=== PATIENT | male | born 1945 | race Caucasian/White ===

== ENCOUNTER 2019-06-21 09:23 | Observation (INO) | payer OTHER, MEDICARE ==
[2019-06-21] MEDS ORDERED: Sodium Chloride 0.9% 10 ML Syringe FLUSH PRN (10:42)
[2019-06-21] MEDS ORDERED: Sodium Chloride 0.9% 1,000 ML IV SCH (10:45)
--- NOTE | 2019-06-21 11:02 | EDM.PDOC ---
ED HPI GENERAL MEDICAL PROBLEM - General Stated Complaint: PASSED OUT, CHEMO, LOW BLOOD COUNTS Time Seen by Provider: 06/21/19 09:43 - History of Present Illness INITIAL COMMENTS - FREE TEXT/NARRATIVE: Rodolfo presents today to the clinic after [place] 2 [place]. He denies any significant exertion at the time, but did have an element of orthostasis. He does feel that he may have temporarily blacking out, at least for 1 of the episodes. He denies any palpitations, tachyarrhythmias, as well as any increased tremors. He was weaned off of primidone finishing this yesterday. He also received a pretty significant induction treatment from the sound of things added to his chemotherapeutic regimen about 2 weeks ago. He typically has a significant need higher and has had issues with decreased white cell response. He anticipates being low on his hemoglobin again, he does not recall being transfused with packed red blood cells, after phone consultation [facility] video [facility] [place]. He correlates his orthostasis as being the same exact symptom that he has when his blood pressure is documented as 80 systolic shortly after experiencing this. Does admit to ongoing issues with dehydration, and no apparent source of bleeding. - Related Data Allergies Allergy/AdvReac Type Severity Reaction Status Date / Time morphine Allergy Anaphylactic Verified 06/21/19 12:36 Shock Home Meds: Home Meds Allopurinol [Zyloprim] 100 mg PO DAILY 06/21/19 [History] Lisinopril/Hydrochlorothiazide [Lisinopril-Hctz 20-12.5 mg Tab] 12.5 - 20 mg PO DAILY 06/21/19 [History] Magnesium Oxide/Vit B6 [Beelith] 280 mg PO DAILY 06/21/19 [History] Non-Formulary Medication [NF Drug] 41 units SQ DAILY 06/21/19 [History] Prochlorperazine [Compazine] 10 mg PO Q6HR PRN MDD 40mg 06/21/19 [History] atorvaSTATin [Lipitor] 10 mg PO DAILY 06/21/19 [History] carvediloL [Carvedilol] 25 mg PO BID 06/21/19 [History] metFORMIN [Glucophage] 1,000 mg PO BID 06/21/19 [History] Past Medical History HEENT History: Reports: Impaired Vision Cardiovascular History: Reports: High Cholesterol, Hypertension, OH, Other (See Below) Other Cardiovascular History: mild OH in 93, stent placed 94 Respiratory History: Reports: None Genitourinary History: Reports: None Musculoskeletal History: Reports: Back Pain, Chronic, Other (See Below) Other Musculoskeletal History: neck pain with radicular sx, low back pain with arthritis Neurological History: Reports: None Psychiatric History: Reports: PTSD Endocrine/Metabolic History: Reports: Diabetes, Type II Hematologic History: Reports: None Immunologic History: Reports: None Oncologic (Cancer) History: Reports: None Dermatologic History: Reports: None, Other (See Below) Other Dermatologic History: skin surgery planned - Past Surgical History GI Surgical History: Reports: Appendectomy ED ROS GENERAL - Review of Systems Review Of Systems: Comprehensive ROS is negative, except as noted in HPI. Respiratory: Reports: No Symptoms Cardiovascular: Reports: No Symptoms GI/Abdominal: Reports: No Symptoms. Denies: Black Stool, Bloody Stool, Diarrhea , Hematochezia, Melena, Vomiting Neurological: Reports: No Symptoms ED EXAM, GENERAL - Physical Exam Exam: See Below Exam Limited By: No Limitations General Appearance: Alert, WD/WN, No Apparent Distress Eye Exam: Bilateral Eye: EOMI, Normal Inspection Ears: Normal External Exam, Hearing Grossly Normal Throat/Mouth: Normal Voice, No Airway Compromise Head: Atraumatic, Normocephalic Neck: Normal Inspection, Supple, Non-Tender, Full Range of Motion Respiratory/Chest: No Respiratory Distress, Lungs Clear, Normal Breath Sounds Cardiovascular: Regular Rate, Rhythm, No Murmur GI/Abdominal: Normal Bowel Sounds, Soft, Non-Tender Back Exam: Normal Inspection, Full Range of Motion Extremities: Normal Inspection, Normal Range of Motion, Non-Tender, No Pedal Edema, Normal Capillary Refill Neurological: Alert, Oriented, Normal Cognition, No Motor/Sensory Deficits Psychiatric: Normal Affect, Normal Mood Skin Exam: Warm, Dry, Intact, No Rash Lymphatic: No Adenopathy Course - Vital Signs Text/Narrative:: Discussed rationale against observation for transfusing prb's and electrolyte replacement Last Recorded V/S: Last Vital Signs Temp 96.9 F 06/21/19 14:21 Pulse 66 06/21/19 14:21 Resp 16 06/21/19 14:21 BP 120/51 L 06/21/19 14:21 Pulse Ox 100 06/21/19 14:21 - Orders/Labs/Meds Orders: Active Orders 24 hr Category Date Time Status Cardiac Monitoring [RC] .As Directed Care 06/21/19 10:41 Active EKG Documentation Completion [RC] ASDIRECTED Care 06/21/19 10:43 Active CULTURE BLOOD [BC] Stat Lab 06/21/19 10:40 Received UA RFX KUNAL AND CULT IF INDIC [URIN] Stat Lab 06/21/19 11:14 Ordered Sodium Chloride 0.9% [Normal Saline] 1,000 ml Med 06/21/19 10:45 Active IV ASDIRECTED Sodium Chloride 0.9% [Saline Flush] Med 06/21/19 10:42 Active 10 ml FLUSH ASDIRECTED PRN Saline Lock Insert [OM.PC] Stat Oth 06/21/19 10:42 Ordered Transfuse RBC [Transfuse Red Blood Cells] [COMM] Per Oth 06/21/19 11:18 Ordered Unit Routine Medication Orders Furosemide (Lasix) 10 mg IVPUSH BID PRN PRN Reason: Shortness of Breath Sodium Chloride (Normal Saline) 1,000 mls @ 125 mls/hr IV ASDIRECTED [facility] Last Admin: 06/21/19 10:49 Dose: 125 mls/hr Pantoprazole Sodium 40 mg/ (Sodium Chloride) 100 mls @ 200 mls/hr IV BID [facility] Last Admin: 06/21/19 12:54 Dose: 200 mls/hr Potassium Chloride (Kcl 10 Meq In Water 50 Ml) 50 mls @ 50 mls/hr IV ASDIRECTED [facility] Stop: 06/21/19 23:59 Magnesium Sulfate/Dextrose (Magnesium Sulfate In D5w 100 Premix) 2 gm in 200 mls @ 100 mls/hr IV ASDIRECTED [facility] Potassium Chloride/Dextrose/Sod Cl (D5 1/2 Ns W/ 20 Meq/L Kcl) 1,000 mls @ 100 mls/hr IV ASDIRECTED [facility] Non-Formulary Medication (Allopurinol [Zyloprim]) 100 mg PO DAILY [facility] Non-Formulary Medication 1 Each ( Atorvastatin [ Lipitor] 20 Mg) 10 mg PO DAILY [facility] Non-Formulary Medication (Carvedilol [Carvedilol]) 25 mg PO BID [facility] Non-Formulary Medication (Lisinopril/Hydrochlorothiazide [Lisinopril-Hctz 20- 12.5 Mg Tab]) 12.5 - 20 mg PO DAILY JUNIOR Non-Formulary Medication (Metformin [Glucophage]) 1,000 mg PO BID JUNIOR Non-Formulary Medication (Prochlorperazine [Compazine]) 10 mg PO Q6HR PRN PRN Reason: Nausea Magnesium Oxide (140mg Capsule) 2 each PO DAILY JUNIOR Lantus Vial 100units (/Ml) 41 each SUBCUT BEDTIME JUNIOR Sodium Chloride (Saline Flush) 10 ml FLUSH ASDIRECTED PRN PRN Reason: Keep Vein Open Last Admin: 06/21/19 11:00 Dose: 10 ml Labs: Laboratory Tests 06/21/19 06/21/19 06/21/19 Range/Units 10:40 10:40 10:40 WBC 5.7 (4.0-11.0) K/uL RBC 2.81 L (4.50-6.50) M/uL Hgb 8.1 L (13.0-18.0) g/dL Hct 24.0 L (40.0-54.0) % MCV 85 (76-96) fL MCH 28.8 (27.0-32.0) pg MCHC 33.8 (31.0-35.0) g/dL RDW 15.3 (11.0-16.0) % Plt Count 42 L* (150-400) K/uL Neut % (Auto) 76.5 H (45.0-70.0) % Lymph % (Auto) 8.6 L (20.0-40.0) % [place] % (Auto) 14.2 H (3.0-10.0) % Eos % (Auto) 0.5 L (1.0-5.0) % Baso % (Auto) 0.2 (0.0-0.5) % Neut # (Auto) 4.38 (2.00-7.50) K/uL Lymph # (Auto) 0.49 L (1.50-4.00) K/uL [place] # (Auto) 0.81 H (0.20-0.80) K/uL Eos # (Auto) 0.03 L (0.04-0.40) K/uL Baso # (Auto) 0.01 L (0.02-0.10) K/uL Sodium 140 (136-145) mmol/L Potassium 2.7 L* (3.5-5.1) mmol/L Chloride 101 (98-107) mmol/L Carbon Dioxide 25.2 (21.0-32.0) mmol/L Anion Gap 16.5 H (5.0-15.0) mmol/L BUN 26 (8-26) mg/dL Creatinine 1.26 (0.70-1.30) mg/dL Est Cr Clr Drug Dosing TNP Estimated GFR (MDRD) 56 L (>60) MLS/MIN BUN/Creatinine Ratio 20.6 (6-25) Glucose 178 H (74-100) mg/dL Lactic Acid 2.8 H (0.4-2.0) mmol/L Calcium 7.7 L (8.5-10.1) mg/dL Total Bilirubin 0.7 (0.0-1.0) mg/dL AST 42 H (15-37) U/L ALT 55 (12-78) U/L Alkaline Phosphatase 67 (46-116) U/L Troponin I 0.114 H* (0.000-0.060) ng/mL C-Reactive Protein 49.8 H (0.0-3.0) mg/L Total Protein 5.3 L (6.4-8.2) g/dL Albumin 2.6 L (3.4-5.0) g/dL Globulin 2.7 (2.2-4.2) g/dL Albumin/Globulin Ratio 1.0 (0.8-2.0) Meds: Medications Generic Name Dose Route Start Last Admin Trade Name Jeyson PRN Reason Stop Dose Admin Furosemide 10 mg 06/21/19 11:49 Lasix IVPUSH BID PRN Shortness of Breath Sodium Chloride 1,000 mls @ 125 mls/hr 06/21/19 10:45 06/21/19 10:49 Normal Saline IV 125 mls/hr ASDIRECTED JUNIOR Administration Pantoprazole Sodium 40 mg/ 100 mls @ 200 mls/hr 06/21/19 11:30 06/21/19 12:54 Sodium Chloride IV 200 mls/hr BID JUNIOR Administration Potassium Chloride 50 mls @ 50 mls/hr 06/21/19 14:00 Kcl 10 Meq In Water 50 Ml IV 06/21/19 23:59 ASDIRECTED JUNIOR Magnesium Sulfate/Dextrose 2 gm in 200 mls @ 100 mls/hr 06/21/19 14:00 Magnesium Sulfate In D5w 100 Premix IV ASDIRECTED JUNIOR Potassium Chloride/Dextrose/Sod Cl 1,000 mls @ 100 mls/hr 06/21/19 15:00 D5 1/2 Ns W/ 20 Meq/L Kcl IV ASDIRECTED JUNIOR Non-Formulary Medication 100 mg 06/22/19 08:00 Allopurinol [Zyloprim] PO DAILY JUNIOR Non-Formulary 10 mg 06/21/19 20:00 Medication 1 Each ( PO Atorvastatin [ DAILY JUNIOR Lipitor] 20 Mg) Non-Formulary Medication 25 mg 06/21/19 20:00 Carvedilol [Carvedilol] PO BID JUNIOR Non-Formulary Medication 12.5 - 20 mg 06/22/19 08:00 Lisinopril/Hydrochlorothiazide [Lisinopril-Hctz 20-12.5 Mg Tab] PO DAILY [facility] Non-Formulary Medication 1,000 mg 06/21/19 20:00 Metformin [Glucophage] PO BID JUNIOR Non-Formulary Medication 10 mg 06/21/19 14:06 Prochlorperazine [Compazine] PO Q6HR PRN Nausea Magnesium Oxide 2 each 06/22/19 08:00 140mg Capsule PO DAILY [facility] Lantus Vial 100units 41 each 06/21/19 20:00 /Ml SUBCUT BEDTIME JUNIOR Sodium Chloride 10 ml 06/21/19 10:42 06/21/19 11:00 Saline Flush FLUSH 10 ml ASDIRECTED PRN Administration Keep Vein Open Discontinued Medications Generic Name Dose Route Start Last Admin Trade Name Freq PRN Reason Stop Dose Admin Potassium Chloride 10 meq/ 50 mls @ 50 mls/hr 06/21/19 11:46 06/21/19 14:02 Premix IV 06/21/19 12:45 50 mls/hr ONETIME ONE Administration Magnesium Sulfate 2 gm/ Premix 50 mls @ 25 mls/hr 06/21/19 11:49 06/21/19 14: 25 IV 06/21/19 13:48 Not Given ONETIME ONE Magnesium Sulfate/Dextrose Confirm 06/21/19 13:29 06/21/19 14:23 Magnesium Sulfate In D5w 100 Premix Administered 06/21/19 13:30 Not Given Dose 2 gm in 200 mls @ as directed .ROUTE .STK-MED ONE Magnesium Oxide 400 mg 06/21/19 12:00 06/21/19 12:45 Magnesium Oxide PO 400 mg BID JUNIOR Administration Departure - Departure Time of Disposition: 15:00 Disposition: Refer to Observation Clinical Impression: Syncope - Discharge Information Sepsis Event Note - Focused Exam Vital Signs: Vital Signs Temp Pulse Resp BP Pulse Ox 06/21/19 11:10 97.5 F 67 16 145/76 H 96 Date Exam was Performed: 06/21/19 Time Exam was Performed: 15:02 - My Orders Last 24 Hours: My Active Orders 06/21/19 10:40 CULTURE BLOOD [BC] Stat 06/21/19 10:41 Cardiac Monitoring [RC] .As Directed 06/21/19 10:42 Sodium Chloride 0.9% [Saline Flush] 10 ml FLUSH ASDIRECTED PRN Saline Lock Insert [OM.PC] Stat 06/21/19 10:43 EKG Documentation Completion [RC] ASDIRECTED 06/21/19 10:45 Sodium Chloride 0.9% [Normal Saline] 1,000 ml IV ASDIRECTED 06/21/19 11:14 UA RFX KUNAL AND CULT IF INDIC [URIN] Stat 06/21/19 11:18 Transfuse RBC [Transfuse Red Blood Cells] [COMM] Per Unit Routine - Assessment/Plan Last 24 Hours: My Active Orders 06/21/19 10:40 CULTURE BLOOD [BC] Stat 06/21/19 10:41 Cardiac Monitoring [RC] .As Directed 06/21/19 10:42 Sodium Chloride 0.9% [Saline Flush] 10 ml FLUSH ASDIRECTED PRN Saline Lock Insert [OM.PC] Stat 06/21/19 10:43 EKG Documentation Completion [RC] ASDIRECTED 06/21/19 10:45 Sodium Chloride 0.9% [Normal Saline] 1,000 ml IV ASDIRECTED 06/21/19 11:14 UA RFX KUNAL AND CULT IF INDIC [URIN] Stat 06/21/19 11:18 Transfuse RBC [Transfuse Red Blood Cells] [COMM] Per Unit Routine
[2019-06-21] MEDS ORDERED: Potassium Chloride Riders 10 MEQ in Premix Bag 1 BAG IV ONE (11:46)
[2019-06-21] MEDS ORDERED: Furosemide 40 MG/4 ML VIAL IVPUSH PRN (11:49)
[2019-06-21] MEDS ORDERED: Magnesium Sulfate/Water 2 GM in Premix Bag 1 BAG IV ONE (11:49)
[2019-06-21] MEDS ORDERED: Magnesium Oxide 400 MG Tab PO SCH (12:00)
[2019-06-21] MEDS: Pantoprazole 40 MG in Sodium Chloride 0.9% 100 ML IV SCH ×2 (12:54→22:12)
[2019-06-21] MEDS ORDERED: Magnesium Sulfate/D5W 2 GM/200 ML BAG ONE (13:29)
[2019-06-21] MEDS ORDERED: Potassium Chloride Riders 50 ML IV SCH (14:00)
[2019-06-21] MEDS ORDERED: Magnesium Sulfate/D5W 2 GM/200 ML BAG IV SCH (14:00)
[2019-06-21] MEDS ORDERED: Non-Formulary Medication 1 Each (Prochlorperazine [Compazine] 10 MG) PO PRN (14:06)
[2019-06-21] MEDS ORDERED: D5 1/2 NS w/ 20 mEq/L KCl 1,000 ML IV SCH (15:00)
--- NOTE | 2019-06-21 15:52 | CR ---
CLINICAL DATA: R/o source of infection. AP CHEST, 21 JUN 2019: No priors. There is a right-sided portacath in place with its distal tip in the region of superior vena cava. The heart size is normal. There is mild eventration of the right hemidiaphragm and mild atelectatic changes in the right lung base. The lungs are otherwise clear. No pneumothorax. No pleural effusions. Job: [id number] [facility]
[2019-06-21] MEDS ORDERED: LANTUS 100 UNIT/ML SUBCUT SCH (20:00)
[2019-06-21] MEDS: Non-Formulary Medication 1 Each (Atorvastatin [Lipitor] 20 MG) PO SCH (20:02)
[2019-06-21] MEDS: CARVEDILOL 25 MG PO SCH (20:03)
[2019-06-21] MEDS: Non-Formulary Medication 1 Each (Metformin [Glucophage] 1,000 MG) PO SCH (20:03)
[2019-06-22] MEDS ORDERED: MAGNESIUM OXIDE PO SCH ×2 (08:00)
[2019-06-22] MEDS ORDERED: Non-Formulary Medication 1 Each (Allopurinol [Zyloprim] 100 MG) PO SCH (08:00)
[2019-06-22] MEDS ORDERED: Non-Formulary Medication 1 Each (Lisinopril/Hydrochlorothiazide [Lisinopril-Hctz 20-12.5 M PO SCH (08:00)
[2019-06-22] MEDS ORDERED: PYRIDOXINE PO SCH (08:00)
[2019-06-22] MEDS ORDERED: Potassium Chloride 10 MEQ Tab.ER ONE ×3 (08:00→10:16)
[2019-06-22] MEDS: Non-Formulary Medication 1 Each (Atorvastatin [Lipitor] 20 MG) PO SCH (08:30)
[2019-06-22] MEDS: CARVEDILOL 25 MG PO SCH (08:31)
[2019-06-22] MEDS: Non-Formulary Medication 1 Each (Metformin [Glucophage] 1,000 MG) PO SCH (08:33)
[2019-06-22] MEDS: Pantoprazole 40 MG in Sodium Chloride 0.9% 100 ML IV SCH (09:07)
--- NOTE | 2019-06-22 12:56 | DISCH ---
ADMISSION DIAGNOSIS: Syncopal episode. DISCHARGE DIAGNOSES: 1. Syncopal episode. 2. Anemia, improved. 3. Recent chemotherapy for non-Hodgkin's lymphoma. HISTORY: This 73-year-old man was admitted by Dr. Bond yesterday morning because of a couple of previous presyncopal episodes [place] He did not have any prior episodes of palpitations or chest pain. He has been treated with several courses of chemotherapy for his non-Hodgkin's lymphoma. The last time being 2 weeks ago. [facility] Bond admitted him for observation and because his hemoglobin was 8.1, he was transfused 2 units of packed red blood cells overnight. He did have an elevation of his troponin at 0.114, which was repeated yesterday afternoon at 0.115. Dr. Gloria ordered a repeat of his troponin and it is 0.126 today. Overnight, he did very well and feels quite well today with no further episodes of dizziness. His hemoglobin after transfusion of 2 units of packed cells was 10.2. He does have thrombocytopenia, which appears to be reasonably stable at this time with yesterday's platelet count at 42,000 and today's platelet count at 43,000. He also has some hypokalemia for which he received some IV supplementation. His potassium was 2.7 on admission and is 3.0 this morning. He had an uneventful evening and feels quite well with no symptoms of chest pain or shortness of breath. No dizziness or lightheadedness. His EKG yesterday versus today shows a right bundle-branch block and no acute changes. No sign of myocardial ischemia. PLAN: He will be discharged today and is scheduled to return on Monday, 06/23, for routine labs in anticipation about another course of chemotherapy if his labs are acceptable. I informed him that should he experience any discomfort in his chest, any shortness of breath, and if any further syncopal episodes, of course, he should get back with us or return to the emergency room to be seen. All questions were answered. He understands and agrees with this plan. YORDY/GIACOMO /[id number]
[2019-06-23] MEDS ORDERED: Non-Formulary Medication 1 Each SQ SCH (20:00)
== END 2019-06-22 10:56 | disposition home or self-care (01) ==
LOC: LB.ED 09:23 → LB.MS 11:19
PROVIDERS: ADMIT Family Medicine; ATTEND Family Medicine
DX: R55 Syncope and collapse (principal); D64.9 Anemia, unspecified; C85.90 Non-Hodgkin lymphoma, unspecified, unspecified site; E78.00 Pure hypercholesterolemia, unspecified; I10 Essential (primary) hypertension; E11.9 Type 2 diabetes mellitus without complications; Z88.5 Allergy status to narcotic agent; Z79.84 Long term (current) use of oral hypoglycemic drugs; Z79.899 Other long term (current) drug therapy
CPT/HCPCS: 36415; 36430; 71045; 80053; 81001; 83605; 83735; 83880; 84484; 85025; 86140; 86850; 86900; 86901; 86920; 86922; 87040; 87070; 93005; 96361; 96365; 96374; 99284; A9270; C9113; J1642; J3475; J3480; J7030; J7050; P9016; 96360

== ENCOUNTER 2019-08-11 20:22 | Inpatient (IN) | payer OTHER, MEDICARE ==
[2019-08-11] MEDS: Piperacillin/Tazobactam 3.375 GM in Sodium Chloride 0.9% 100 ML IV SCH (23:24)
[2019-08-11] MEDS ORDERED: diphenhydrAMINE 50 MG Cap PO ONE (23:50)
[2019-08-11] MEDS ORDERED: Acetaminophen 325 MG Tab PO ONE (23:50)
--- NOTE | 2019-08-12 00:29 | HP ---
REASON FOR ADMISSION: Leukopenia and fever. HISTORY: This 74-year-old gentleman has been undergoing chemotherapy for B-cell non-Hodgkin lymphoma since last December. He is currently on a "RICE" chemotherapeutic regimen and his oncologist is Dr. Dr. Christian Moreno at the [facility]. The patient's last chemotherapy treatment was 10 days ago and he has had hs expected falling blood counts following that. His actual WBC was 700 on 08/09/2019. He was doing reasonably well until last evening when he did experience some chills throughout the day, today, he felt tired and chills and slept beneath several blankets throughout much of the day. His reports that his temperature was between 101 and 102 today. He denies any headache, visual symptoms, sore throat, cough, chest pain, abdominal pain, nausea, or vomiting. He has had diarrhea but this has been an intermittent problem for him ever since he has started his chemotherapy and he treats this with probiotics that has not changed. His appetite has been decreased today, but prior to that, he states it has been excellent. He has required several transfusions in the past since he has initiated his chemotherapy. He has not done any traveling and no one in his household has been ill. PAST MEDICAL HISTORY: 1. B-cell non-Hodgkin lymphoma since December of 2018. 2. Type 2 diabetes x20 years. 3. History of coronary artery disease with stenting and a myocardial infarction in 1992. 4. Hypertension. 5. Appendectomy. ALLERGIES: TO OXYCODONE, MORPHINE, AND TRAMADOL. SOCIAL HISTORY: He lives with his . He does not smoke or drink. MEDICATIONS: Include: 1. Allopurinol 100 mg p.o. daily. 2. Lisinopril and hydrochlorothiazide 20/12.5 one p.o. daily. 3. Vitamins. 4. Compazine 10 mg p.o. q.6 hours p.r.n. nausea. 5. Lipitor 10 mg p.o. daily. 6. Carvedilol 25 mg p.o. b.i.d. 7. Metformin 1000 mg p.o. b.i.d. 8. He is also on insulin. REVIEW OF SYSTEMS: Pertinent positives and negatives as listed in the HPI. PHYSICAL EXAMINATION: GENERAL: Reveals a very pleasant, alert man, who is talkative and in no apparent distress. VITAL SIGNS: His temperature is 104, blood pressure 114/68, pulse is 79, respirations 16. HEENT: Head is normocephalic. No conjunctivitis is noted. TMs are normal. Oropharynx is normal. NECK: Supple. No adenopathy. No JVD. No meningeal signs. CHEST: Clear to auscultation with good air exchange and no wheezes, rhonchi, or rales. CARDIAC: Regular rate without murmur. ABDOMEN: Nondistended, soft, and nontender. There is no hepatosplenomegaly. No guarding or rebound is noted. RECTAL: Examination was not performed. EXTREMITIES: Normal pulses. No edema. No cyanosis. SKIN: No rashes. NEUROLOGIC: Cranial nerves 2 through 12 intact. Deep tendon reflexes symmetrical bilaterally. Muscle strength bulk and tone are normal and symmetrical. Sensory exam is normal to crude touch. LABORATORY DATA: His 12-lead EKG is normal except for right bundle-branch block. His chest x-ray shows no active pulmonary disease. His CBC shows that today his white count is 500 with pending differential. His hemoglobin is 7.9 (this was 8.4 on 08/09/2019). His platelet count is 38,000, it was 83,000 on 08/09/2019. CMP was unremarkable. Electrolytes are normal. No elevated liver enzymes. Calcium is low, but appropriate for his albumin of 2.9. His urinalysis does have occult blood with 30 mg/dL of protein. He has 30 to 40 rbc's per high-powered field. No bacteria or wbc's. Serum lactate is pending. A swab was done for COVID-19 and this was negative. IMPRESSION: Leukopenia with fever in a patient with hematologic malignancy, rule out sepsis. PLAN: 1. He will be admitted to the hospital. 2. We will immediately get blood cultures x2 and also culture his urine. 3. I am going to start him empirically on Zosyn 3.375 g p.o. q.6 hours. I will not add a second antibiotic at this point. 4. We will continue with his usual home medications. 5. I did [facility] to contact [facility] to inform [facility] of [facility], but only received an answering service with no opportunity to leave a voice message. 6. Because of his low hemoglobin and the trajectory compared to just 2 days ago, I think it is sensible to go ahead and transfuse him 2 units of packed RBC's. We will pre- treat him with Benadryl and Tylenol for this. All of this was explained to the patient and his . They understand and agree. All questions were answered. GILMA
[2019-08-12] MEDS ORDERED: Furosemide 40 MG/4 ML VIAL IVPUSH SCH (02:00)
[2019-08-12] MEDS: LISINOPRIL 20 MG PO SCH (08:10)
[2019-08-12] MEDS: FLUCONAZOLE 200 MG PO SCH (08:10)
[2019-08-12] MEDS: ACYCLOVIR 800MG TABLETS PO SCH ×2 (08:10→19:50)
[2019-08-12] MEDS: MAGNESIUM OXIDE PO SCH (08:10)
[2019-08-12] MEDS: HYDROCHLOROTHIAZIDE PO SCH (08:10)
[2019-08-12] MEDS: metFORMIN 1,000 MG Tab PO SCH ×2 (08:10→19:50)
[2019-08-12] MEDS: Prochlorperazine 10 MG Tab PO PRN (08:10)
[2019-08-12] MEDS: Allopurinol 100 MG Tab PO SCH (08:10)
[2019-08-12] MEDS: FILGRASTIM 480 MCG/1.6 ML SUBCUT SCH (08:10)
[2019-08-12] MEDS: INSULIN GLARGINE 100 UNIT/ML SUBCUT SCH (08:30)
--- NOTE | 2019-08-12 08:48 | CR ---
DATE OF SERVICE: 08/11/19 CLINICAL DATA: fever PA AND LATERAL CHEST: Comparison made to a prior exam dated 07/11/19. The right-sided Kyle-Cath is unchanged in position. The heart size is normal. The lungs are clear. No pneumothorax. No pleural effusions. No evidence of acute intrathoracic disease. [id number] [facility]
[2019-08-12] MEDS ORDERED: Acyclovir 400 MG Tab PO SCH (09:00)
[2019-08-12] MEDS ORDERED: Lisinopril 20 MG Tab PO SCH (09:00)
[2019-08-12] MEDS ORDERED: Fluconazole 150 MG Tab PO SCH (09:00)
[2019-08-12] MEDS ORDERED: Cholestyramine/Sucrose Powder 378 GM Jar PO SCH (09:15)
[2019-08-12] MEDS: Carvedilol 25 MG Tab PO SCH ×2 (09:30→19:50)
[2019-08-12] MEDS ORDERED: Insulin Glargine,Human Rec. Analog 100 Units/ML 3 ML Pen SUBCUT SCH (10:00)
[2019-08-12] MEDS: CHOLESTYRAMINE 4 GM PO SCH (11:18)
[2019-08-12] MEDS: Piperacillin/Tazobactam 3.375 GM in Sodium Chloride 0.9% 100 ML IV SCH ×5 (11:22→23:18)
--- NOTE | 2019-08-12 13:15 | PN ---
DATE OF VISIT: 08/12/2019 SUBJECTIVE: Rodolfo had a relatively uneventful night. He did receive his 2 units of packed red blood cells. He has no physical complaints. He has had no fever or chills. He did not have any cough or respiratory symptoms. Denies any abdominal pain. His appetite is improved and his mood is good. Overall, he states he feels quite well. OBJECTIVE: VITAL SIGNS: He is afebrile. Heart rate is 70, blood pressure 128/73, respirations 16, O2 sats 98%. HEENT: Unremarkable. CHEST: Clear to auscultation. CARDIAC: Regular rate without murmur or rub. ABDOMEN: Soft. EXTREMITIES: Unremarkable. SKIN: No rashes. LABORATORY DATA: Following his RBC transfusion, his WBC went from 500-400 today. His hemoglobin is up to 8.7 now. I would have expected this to be a bit higher and we will keep an eye on that. His platelet count has gone from 38,000 to 23,000 overnight. His differential shows that he has marked neutropenia, please see lab. His CMP shows that his potassium is 3.2. We will have to give him some additional oral potassium for this. His glucose is 199. His lactic acid was 1.9 last evening and it is 2.6 today. His liver enzymes are unremarkable. IMPRESSION: Stable with no further fever. He will receive a 2nd dose of Zosyn. His hemoglobin is improved post transfusion. His thrombocytopenia trajectory is such that I went ahead and ordered him 10 units of platelets to be given tomorrow when it arrives. Impression, overall stable. PLAN: He will receive his platelets tomorrow as well as his 3rd dose of Zosyn. If he remains relatively stable and there are no concerns, he can probably go home after his platelets have been infused and receive Zosyn as an outpatient. The patient knows that I will be leaving tomorrow morning and I have discussed the patient's care with Dr. Gloria who is familiar with him and will assume his care. YORDY/GIACOMO /[id number]
[2019-08-12] MEDS ORDERED: metFORMIN 500 MG Tab.ER PO SCH (17:00)
[2019-08-12] MEDS: atorvaSTATin 20 MG Tab PO SCH (19:50)
[2019-08-13] MEDS: Piperacillin/Tazobactam 3.375 GM in Sodium Chloride 0.9% 100 ML IV SCH ×4 (05:00→23:10)
[2019-08-13] MEDS ORDERED: Acetaminophen 500 MG Tab PO PRN (06:24)
[2019-08-13] MEDS: MAGNESIUM OXIDE PO SCH (08:19)
[2019-08-13] MEDS: FLUCONAZOLE 200 MG PO SCH (08:19)
[2019-08-13] MEDS: Prochlorperazine 10 MG Tab PO PRN (08:19)
[2019-08-13] MEDS: Allopurinol 100 MG Tab PO SCH (08:20)
[2019-08-13] MEDS: ACYCLOVIR 800MG TABLETS PO SCH ×2 (08:20→20:30)
[2019-08-13] MEDS: LISINOPRIL 20 MG PO SCH (08:21)
[2019-08-13] MEDS: CHOLESTYRAMINE 4 GM PO SCH (08:21)
[2019-08-13] MEDS: HYDROCHLOROTHIAZIDE PO SCH (08:21)
[2019-08-13] MEDS: Carvedilol 25 MG Tab PO SCH ×2 (08:21→21:14)
[2019-08-13] MEDS: metFORMIN 1,000 MG Tab PO SCH ×2 (08:22→21:14)
[2019-08-13] MEDS: INSULIN GLARGINE 100 UNIT/ML SUBCUT SCH (08:23)
--- NOTE | 2019-08-13 09:48 | PN ---
DATE OF VISIT: 08/13/2019 SUBJECTIVE: Rodolfo continues to feel well, he remains afebrile, and offers no complaints this morning. OBJECTIVE: VITAL SIGNS: He is afebrile. Blood pressure 121/71, heart rate is 66. Lab is pending at this time. IMPRESSION: Stable. PLAN: His platelets should arrive sometime either early late this morning or early this afternoon, and I have spoken to Dr. Gloria about him. He will see him after the platelets have been infused, and I will order some lab work on him. He should be able to go home after this is done and be followed as an outpatient. I will see to it that his labs get drawn after he receives his platelet infusion. YORDY/GIACOMO /[id number]
[2019-08-13] MEDS: FILGRASTIM 480 MCG/1.6 ML SUBCUT SCH (15:51)
[2019-08-13] MEDS: atorvaSTATin 20 MG Tab PO SCH (20:11)
[2019-08-14] MEDS: Piperacillin/Tazobactam 3.375 GM in Sodium Chloride 0.9% 100 ML IV SCH (06:58)
[2019-08-14] MEDS: ACYCLOVIR 800MG TABLETS PO SCH (07:12)
[2019-08-14] MEDS: FLUCONAZOLE 200 MG PO SCH (07:12)
[2019-08-14] MEDS: Allopurinol 100 MG Tab PO SCH (07:13)
[2019-08-14] MEDS: MAGNESIUM OXIDE PO SCH (07:13)
[2019-08-14] MEDS: HYDROCHLOROTHIAZIDE PO SCH (07:14)
[2019-08-14] MEDS: LISINOPRIL 20 MG PO SCH (07:14)
[2019-08-14] MEDS: Prochlorperazine 10 MG Tab PO PRN (07:14)
[2019-08-14] MEDS: CHOLESTYRAMINE 4 GM PO SCH (07:15)
[2019-08-14] MEDS: metFORMIN 1,000 MG Tab PO SCH (07:17)
[2019-08-14] MEDS: Carvedilol 25 MG Tab PO SCH (07:17)
[2019-08-14] MEDS: FILGRASTIM 480 MCG/1.6 ML SUBCUT SCH (07:18)
[2019-08-14] MEDS: INSULIN GLARGINE 100 UNIT/ML SUBCUT SCH (07:19)
[2019-08-14] MEDS ORDERED: Lisinopril 20 MG Tab PO SCH (08:00)
--- NOTE | 2019-08-14 09:08 | PCM.PN ---
- General Info Date of Service: 08/13/19 Subjective Update: This is a 74yo M who has been improving during his stay. He received platelets today and denied any concerns. We called and consulted his Oncology physician Dr. Moreno and setup a plan this afternoon for possible discharge discussion. Patient notes he has not had a fever for a day and doing well. He notes improvement from yesterday and much from admission. He is aware of the severe neutropenia. Discussion with Dr. Moreno (Oncology) and patient is required to stay inpatient until the resolution of the severe Neutropenia. Functional Status: Reports: Tolerating Diet - Review of Systems General: Reports: Weakness, Fatigue HEENT: Reports: No Symptoms Pulmonary: Reports: No Symptoms Cardiovascular: Reports: No Symptoms Gastrointestinal: Reports: No Symptoms Genitourinary: Reports: No Symptoms Musculoskeletal: Reports: No Symptoms Neurological: Reports: Weakness Psychiatric: Reports: No Symptoms - Patient Data Vitals - Most Recent: Last Vital Signs Temp 36.8 C 08/14/19 07:34 Pulse 68 08/14/19 07:34 Resp 18 08/14/19 07:34 BP 127/64 08/14/19 07:34 Pulse Ox 96 08/14/19 07:34 Weight - Most Recent: 101.151 kg I&O - Last 24 Hours: Intake & Output 08/13/19 08/14/19 08/14/19 22:59 06:59 14:59 Intake Total 200 350 Balance 200 350 Lab Results Last 24 Hours: Laboratory Results - last 24 hr 08/11/19 08/13/19 08/13/19 Range/Units 22:45 03:00 15:00 WBC 0.8 L* D (4.0-11.0) K/uL RBC 2.99 L (4.50-6.50) M/uL Hgb 8.8 L (13.0-18.0) g/dL Hct 25.2 L (40.0-54.0) % MCV 84 (76-96) fL MCH 29.4 (27.0-32.0) pg MCHC 34.9 (31.0-35.0) g/dL RDW 14.0 (11.0-16.0) % Plt Count 56 L D (150-400) K/uL MPV 8.9 (6.0-10.0) fL Neut % (Auto) [place] Lymph % (Auto) [place] % (Auto) [place] Eos % (Auto) [place] Baso % (Auto) [place] Neut # (Auto) [place] Lymph # (Auto) [place] # (Auto) [place] Eos # (Auto) [place] Baso # (Auto) [place] Add Manual Diff Yes Neutrophils % (Manual) 42.0 L (45.0-70.0) % Band Neutrophils % 2.0 % Lymphocytes % (Manual) 43.0 H (20.0-40.0) % Monocytes % (Manual) 6.0 (3.0-10.0) % Eosinophils % (Manual) 5.0 (1.0-5.0) % Basophils % (Manual) 2.0 H (0.0-0.5) % Platelet Estimate Marked dec L Sodium 140 (136-145) mmol/L Potassium 3.0 L (3.5-5.1) mmol/L Chloride 103 (98-107) mmol/L Carbon Dioxide 28.6 (21.0-32.0) mmol/L Anion Gap 11.4 (5.0-15.0) mmol/L BUN 11 D (8-26) mg/dL Creatinine 1.07 (0.70-1.30) mg/dL Est Cr Clr Drug Dosing 56.63 mL/min Estimated GFR (MDRD) > 60 (>60) MLS/MIN BUN/Creatinine Ratio 10.3 (6-25) Glucose 160 H (74-100) mg/dL Calcium 8.3 L (8.5-10.1) mg/dL Total Bilirubin 0.7 (0.0-1.0) mg/dL AST 24 (15-37) U/L ALT 36 (12-78) U/L Alkaline Phosphatase 137 H (46-116) U/L Total Protein 6.3 L (6.4-8.2) g/dL Albumin 2.8 L (3.4-5.0) g/dL Globulin 3.5 (2.2-4.2) g/dL Albumin/Globulin Ratio 0.8 (0.8-2.0) TSH, Ultra Sensitive 4.022 H (0.358-3.740) uIU/mL Blood Type O POSITIVE Gel Antibody Screen Negative Crossmatch See Detail Joseph Results Last 24 Hours: Microbiology 08/11/19 23:00 Urine Culture - Final Urine, Clean Catch No Growth 08/11/19 22:30 Aerobic Blood Culture - Preliminary Blood - Port-A-Cath NO GROWTH AFTER 2 DAYS Anaerobic Blood Culture - Preliminary NO GROWTH AFTER 2 DAYS 08/11/19 22:45 Aerobic Blood Culture - Preliminary Blood NO GROWTH AFTER 2 DAYS Anaerobic Blood Culture - Preliminary NO GROWTH AFTER 2 DAYS 08/11/19 23:40 MRSA Surveillance Culture - Final Nares, Left NO MRSA ISOLATED Med Orders - Current: Current Medications Acetaminophen (Tylenol Extra Strength) 500 mg PO Q4H PRN PRN Reason: Headache Last Admin: 08/14/19 06:58 Dose: 500 mg Documented by: Allopurinol (Zyloprim) 100 mg PO DAILY [facility] Last Admin: 08/14/19 07:13 Dose: 100 mg Documented by: Atorvastatin Calcium (Lipitor) 10 mg PO BEDTIME [facility] Last Admin: 08/13/19 20:11 Dose: 10 mg Documented by: Carvedilol (Coreg) 25 mg PO BID [facility] Last Admin: 08/14/19 07:17 Dose: 25 mg Documented by: Filgrastim (Neupogen) 480 mcg SUBCUT DAILY [facility] Last Admin: 08/14/19 07:18 Dose: 480 mcg Documented by: Hydrochlorothiazide (Hydrochlorothiazide) 12.5 mg PO DAILY [facility] Piperacillin Sod/Tazobactam (Sod 3.375 gm/ Sodium Chloride) 100 mls @ 100 mls/hr IV Q6H [facility] Last Admin: 08/14/19 06:58 Dose: 100 mls/hr Documented by: Potassium Chloride 20 meq/ (Sodium Chloride) 510 mls @ 250 mls/hr IV .BOLUS ONE Stop: 08/14/19 10:59 Insulin Glargine (Lantus Solostar) 40 units SUBCUT DAILY [facility] Lisinopril (Prinivil) 20 mg PO DAILY [facility] Metformin HCl (Glucophage) 1,000 mg PO BID [facility] Last Admin: 08/14/19 07:17 Dose: 1,000 mg Documented by: Acyclovir 800mg (Tablets) 1 each PO BID [facility] Stop: 08/14/19 20:01 Last Admin: 08/14/19 07:12 Dose: 1 each Documented by: Fluconazole 200mg (Tablets) 2 each PO DAILY [facility] Stop: 08/14/19 23:59 Last Admin: 08/14/19 07:12 Dose: 2 each Documented by: Magnesium Oxide (140mg Tablets) 2 each PO DAILY [facility] Last Admin: 08/14/19 07:13 Dose: 2 each Documented by: Cholestyramine ( Prevalite) 4gm Packets 1 each PO DAILY [facility] Last Admin: 08/14/19 07:15 Dose: 1 each Documented by: Prochlorperazine Maleate (Compazine) 10 mg PO Q6H PRN PRN Reason: Nausea/Vomiting Last Admin: 08/14/19 07:14 Dose: 10 mg Documented by: Discontinued Medications Acetaminophen (Tylenol) 650 mg PO NOW ONE Stop: 08/11/19 23:51 Last Admin: 08/12/19 00:26 Dose: 650 mg Documented by: Diphenhydramine HCl (Benadryl) 50 mg PO ONETIME ONE Stop: 08/11/19 23:51 Last Admin: 08/12/19 00:27 Dose: 50 mg Documented by: Furosemide (Lasix) 10 mg IVPUSH NOW [facility] Stop: 08/13/19 02:01 Last Admin: 08/12/19 04:03 Dose: 10 mg Documented by: Lisinopril (Prinivil) 20 mg PO DAILY [facility] Hctz12.5mg/Lisnopril (20mg) 1 each PO DAILY [facility] Last Admin: 08/14/19 07:14 Dose: 1 each Documented by: Insulin Glargine ( (Lantus) 100 Units/Ml) 40 each SUBCUT DAILY [facility] Last Admin: 08/14/19 07:19 Dose: 40 each Documented by: - Exam General: Alert, Oriented HEENT: Pupils Equal, Pupils Reactive Neck: Supple Lungs: Clear to Auscultation, Normal Respiratory Effort Cardiovascular: Regular Rate, Regular Rhythm GI/Abdominal Exam: Normal Bowel Sounds Back Exam: Normal Inspection Extremities: Normal Inspection Sepsis Event Note - Evaluation Sepsis Screening Result: No Definite Risk - Focused Exam Vital Signs: Vital Signs Temp Pulse Pulse Resp BP BP Pulse Ox 08/14/19 07:34 36.8 C 68 18 127/64 96 08/14/19 07:17 68 127/64 08/14/19 04:00 36.9 C 72 16 137/65 100 08/13/19 23:48 36.8 C 70 16 147/77 H 98 08/13/19 21:14 88 132/70 Date Exam was Performed: 08/14/19 Time Exam was Performed: 12:36 - Problem List & Annotations (1) Severe neutropenia SNOMED Code(s): 665619634 Code(s): D70.9 - NEUTROPENIA, UNSPECIFIED Status: Acute Priority: High - Problem List Review Problem List Initiated/Reviewed/Updated: Yes - My Orders Last 24 Hours: My Active Orders 08/13/19 08:29 Isolation [COMM] Stat 08/13/19 16:47 Admission Status [Patient Status] [ADT] Routine 08/13/19 23:26 Resuscitation Status Routine 08/14/19 08:43 BASIC METABOLIC PANEL,BMP [CHEM] Routine CBC WITH AUTO DIFF [HEME] Routine 08/14/19 08:57 Potassium Chloride 20 meq Sodium Chloride 0.9% [Normal Saline] 500 ml IV .BOLUS - Plan Plan:: Patient counseled on plan of care and discussion with Oncology/hematology. Discussed plan of care and discharge planning. Patient will need a WBC at least 1000 prior to discharge. He will remain on severe neutropenic precautions until this time. Patient to continue Neupogen daily. Patient admitted for severe neutropenia management per [facility] Oncologist.
--- NOTE | 2019-08-14 12:56 | PCM.DCSUM1 ---
Discharge Summary - Discharge Data Discharge Date: 08/14/19 Discharge Disposition: Home, Self-Care 01 Condition: Good - Referral to Home Health Primary Care Physician: PCP None - Discharge Diagnosis/Problem(s) (1) Severe neutropenia SNOMED Code(s): 215399696 ICD Code: D70.9 - NEUTROPENIA, UNSPECIFIED Status: Acute Priority: High - Patient Instructions Diet: Diabetic Diet Activity: As Tolerated Driving: May Drive Today Showering/Bathing: May Shower - Discharge Plan Prescriptions/Med Rec: Levofloxacin 750 mg PO DAILY #14 tablet Potassium Chloride 10 meq PO BID #30 cap.er L.acidoph,Paracasei, B.lactis [Probiotic] 1 each PO BID #60 capsule Home Medications: Home Meds Allopurinol [Zyloprim] 100 mg PO DAILY 06/21/19 [History] Lisinopril/Hydrochlorothiazide [Lisinopril-Hctz 20-12.5 mg Tab] 12.5 - 20 mg PO DAILY 06/21/19 [History] Magnesium Oxide/Vit B6 [Beelith] 280 mg PO DAILY 06/21/19 [History] Non-Formulary Medication [NF Drug] 41 units SQ DAILY 06/21/19 [History] Prochlorperazine [Compazine] 10 mg PO Q6HR PRN MDD 40mg 06/21/19 [History] atorvaSTATin [Lipitor] 10 mg PO DAILY 06/21/19 [History] carvediloL [Carvedilol] 25 mg PO BID 06/21/19 [History] metFORMIN [Glucophage] 1,000 mg PO BID 06/21/19 [History] Acetaminophen [Tylenol Extra Strength] 500 mg PO Q4H PRN tablet 08/14/19 [Rx] Filgrastim [Neupogen] 480 mcg SUBCUT DAILY sdv 08/14/19 [Rx] Insulin Glarg,Human.Rec.Analog [Lantus Solostar] 40 units SUBCUT DAILY pen 08/14/19 [Rx] L.acidoph,Paracasei, B.lactis [Probiotic] 1 each PO BID #60 capsule 08/14/19 [Rx] Levofloxacin 750 mg PO DAILY #14 tablet 08/14/19 [Rx] Non-Formulary Medication [NF Drug] 1 each PO BID each 08/14/19 [Rx] Non-Formulary Medication [NF Drug] 1 each PO DAILY each 08/14/19 [Rx] Non-Formulary Medication [NF Drug] 2 each PO DAILY each 08/14/19 [Rx] Non-Formulary Medication [NF Drug] 2 each PO DAILY each 08/14/19 [Rx] Potassium Chloride 10 meq PO BID #30 cap.er 08/14/19 [Rx] Prochlorperazine [Compazine] 10 mg PO Q6H PRN tablet 08/14/19 [Rx] allopurinoL [Zyloprim] 100 mg PO DAILY tablet 08/14/19 [Rx] atorvaSTATin [Lipitor] 10 mg PO BEDTIME tablet 08/14/19 [Rx] carvediloL [Coreg] 25 mg PO BID tablet 08/14/19 [Rx] hydroCHLOROthiazide [Hydrochlorothiazide] 12.5 mg PO DAILY cap 08/14/19 [Rx] lisinopriL [Prinivil] 20 mg PO DAILY tablet 08/14/19 [Rx] metFORMIN [Glucophage] 1,000 mg PO BID tablet 08/14/19 [Rx] Patient Handouts: Hypokalemia, Potassium Phosphate oral tablets, Levofloxacin tablets - Discharge Summary/Plan Comment DC Time >30 min.: No Discharge Summary/Plan Comment: Patient to be discharged with follow up care with Oncology. Patient to continue Neupogen and antibiotics/antifungals as directed and f/u with Oncology on August 26. Patient to also f/u labs in 2 days. Patient sent home with potassium supplementation and repeat K+ on Monday. - Patient Data Vitals - Most Recent: Last Vital Signs Temp 36.8 C 08/14/19 07:34 Pulse 68 08/14/19 07:34 Resp 18 08/14/19 07:34 BP 127/64 08/14/19 07:34 Pulse Ox 96 08/14/19 07:34 Weight - Most Recent: 101.151 kg I&O - Last 24 hours: Intake & Output 08/13/19 08/14/19 08/14/19 22:59 06:59 14:59 Intake Total 200 350 Balance 200 350 Lab Results - Last 24 hrs: Laboratory Results - last 24 hr 08/13/19 08/13/19 08/14/19 Range/Units 03:00 15:00 10:00 WBC 0.8 L* D 1.6 L D (4.0-11.0) K/uL RBC 2.99 L 2.94 L (4.50-6.50) M/uL Hgb 8.8 L 8.6 L (13.0-18.0) g/dL Hct 25.2 L 25.0 L (40.0-54.0) % MCV 84 85 (76-96) fL MCH 29.4 29.3 (27.0-32.0) pg MCHC 34.9 34.4 (31.0-35.0) g/dL RDW 14.0 13.9 (11.0-16.0) % Plt Count 56 L D 42 L* D (150-400) K/uL MPV 8.9 10.1 H (6.0-10.0) fL Neut % (Auto) Gauge And Instrument Inspector 59.9 Lymph % (Auto) Gauge And Instrument Inspector 22.2 [place] % (Auto) Gauge And Instrument Inspector 14.8 H Eos % (Auto) Gauge And Instrument Inspector 3.1 Baso % (Auto) Gauge And Instrument Inspector 0.0 Neut # (Auto) Gauge And Instrument Inspector 0.97 L Lymph # (Auto) Gauge And Instrument Inspector 0.36 L [place] # (Auto) Gauge And Instrument Inspector 0.24 Eos # (Auto) Gauge And Instrument Inspector 0.05 Baso # (Auto) Gauge And Instrument Inspector 0.00 L Add Manual Diff Yes Neutrophils % (Manual) 42.0 L (45.0-70.0) % Band Neutrophils % 2.0 % Lymphocytes % (Manual) 43.0 H (20.0-40.0) % Monocytes % (Manual) 6.0 (3.0-10.0) % Eosinophils % (Manual) 5.0 (1.0-5.0) % Basophils % (Manual) 2.0 H (0.0-0.5) % Platelet Estimate Marked dec L Sodium 140 (136-145) mmol/L Potassium 3.0 L (3.5-5.1) mmol/L Chloride 103 (98-107) mmol/L Carbon Dioxide 28.6 (21.0-32.0) mmol/L Anion Gap 11.4 (5.0-15.0) mmol/L BUN 11 D (8-26) mg/dL Creatinine 1.07 (0.70-1.30) mg/dL Est Cr Clr Drug Dosing 56.63 mL/min Estimated GFR (MDRD) > 60 (>60) MLS/MIN BUN/Creatinine Ratio 10.3 (6-25) Glucose 160 H (74-100) mg/dL Calcium 8.3 L (8.5-10.1) mg/dL Total Bilirubin 0.7 (0.0-1.0) mg/dL AST 24 (15-37) U/L ALT 36 (12-78) U/L Alkaline Phosphatase 137 H (46-116) U/L Total Protein 6.3 L (6.4-8.2) g/dL Albumin 2.8 L (3.4-5.0) g/dL Globulin 3.5 (2.2-4.2) g/dL Albumin/Globulin Ratio 0.8 (0.8-2.0) TSH, Ultra Sensitive 4.022 H (0.358-3.740) uIU/mL 08/14/19 Range/Units 10:00 WBC (4.0-11.0) K/uL RBC (4.50-6.50) M/uL Hgb (13.0-18.0) g/dL Hct (40.0-54.0) % MCV (76-96) fL MCH (27.0-32.0) pg MCHC (31.0-35.0) g/dL RDW (11.0-16.0) % Plt Count (150-400) K/uL MPV (6.0-10.0) fL Neut % (Auto) Lymph % (Auto) [place] % (Auto) Eos % (Auto) Baso % (Auto) Neut # (Auto) Lymph # (Auto) [place] # (Auto) Eos # (Auto) Baso # (Auto) Add Manual Diff Neutrophils % (Manual) (45.0-70.0) % Band Neutrophils % % Lymphocytes % (Manual) (20.0-40.0) % Monocytes % (Manual) (3.0-10.0) % Eosinophils % (Manual) (1.0-5.0) % Basophils % (Manual) (0.0-0.5) % Platelet Estimate Sodium 139 (136-145) mmol/L Potassium 3.1 L (3.5-5.1) mmol/L Chloride 103 (98-107) mmol/L Carbon Dioxide 27.0 (21.0-32.0) mmol/L Anion Gap 12.1 (5.0-15.0) mmol/L BUN 8 D (8-26) mg/dL Creatinine 1.03 (0.70-1.30) mg/dL Est Cr Clr Drug Dosing 58.83 mL/min Estimated GFR (MDRD) > 60 (>60) MLS/MIN BUN/Creatinine Ratio 7.8 (6-25) Glucose 152 H (74-100) mg/dL Calcium 8.1 L (8.5-10.1) mg/dL Total Bilirubin (0.0-1.0) mg/dL AST (15-37) U/L ALT (12-78) U/L Alkaline Phosphatase (46-116) U/L Total Protein (6.4-8.2) g/dL Albumin (3.4-5.0) g/dL Globulin (2.2-4.2) g/dL Albumin/Globulin Ratio (0.8-2.0) TSH, Ultra Sensitive (0.358-3.740) uIU/mL KUNAL Results - Last 24 hrs: Microbiology 08/11/19 23:00 Urine Culture - Final Urine, Clean Catch No Growth 08/11/19 22:30 Aerobic Blood Culture - Preliminary Blood - Port-A-Cath NO GROWTH AFTER 2 DAYS Anaerobic Blood Culture - Preliminary NO GROWTH AFTER 2 DAYS 08/11/19 22:45 Aerobic Blood Culture - Preliminary Blood NO GROWTH AFTER 2 DAYS Anaerobic Blood Culture - Preliminary NO GROWTH AFTER 2 DAYS 08/11/19 23:40 MRSA Surveillance Culture - Final Nares, Left NO MRSA ISOLATED Med Orders - Current: Current Medications Discontinued Medications Acetaminophen (Tylenol) 650 mg PO NOW ONE Stop: 08/11/19 23:51 Last Admin: 08/12/19 00:26 Dose: 650 mg Documented by: Acetaminophen (Tylenol Extra Strength) 500 mg PO Q4H PRN PRN Reason: Headache Last Admin: 08/14/19 06:58 Dose: 500 mg Documented by: Allopurinol (Zyloprim) 100 mg PO DAILY [facility] Last Admin: 08/14/19 07:13 Dose: 100 mg Documented by: Atorvastatin Calcium (Lipitor) 10 mg PO BEDTIME [facility] Last Admin: 08/13/19 20:11 Dose: 10 mg Documented by: Carvedilol (Coreg) 25 mg PO BID [facility] Last Admin: 08/14/19 07:17 Dose: 25 mg Documented by: Diphenhydramine HCl (Benadryl) 50 mg PO ONETIME ONE Stop: 08/11/19 23:51 Last Admin: 08/12/19 00:27 Dose: 50 mg Documented by: Filgrastim (Neupogen) 480 mcg SUBCUT DAILY [facility] Last Admin: 08/14/19 07:18 Dose: 480 mcg Documented by: Furosemide (Lasix) 10 mg IVPUSH NOW [facility] Stop: 08/13/19 02:01 Last Admin: 08/12/19 04:03 Dose: 10 mg Documented by: Hydrochlorothiazide (Hydrochlorothiazide) 12.5 mg PO DAILY [facility] Piperacillin Sod/Tazobactam (Sod 3.375 gm/ Sodium Chloride) 100 mls @ 100 mls/hr IV Q6H [facility] Last Admin: 08/14/19 06:58 Dose: 100 mls/hr Documented by: Potassium Chloride 20 meq/ (Sodium Chloride) 510 mls @ 250 mls/hr IV .BOLUS ONE Stop: 08/14/19 10:59 Insulin Glargine (Lantus Solostar) 40 units SUBCUT DAILY [facility] Lisinopril (Prinivil) 20 mg PO DAILY [facility] Lisinopril (Prinivil) 20 mg PO DAILY [facility] Metformin HCl (Glucophage) 1,000 mg PO BID [facility] Last Admin: 08/14/19 07:17 Dose: 1,000 mg Documented by: Acyclovir 800mg (Tablets) 1 each PO BID [facility] Stop: 08/14/19 20:01 Last Admin: 08/14/19 07:12 Dose: 1 each Documented by: Fluconazole 200mg (Tablets) 2 each PO DAILY [facility] Stop: 08/14/19 23:59 Last Admin: 08/14/19 07:12 Dose: 2 each Documented by: Magnesium Oxide (140mg Tablets) 2 each PO DAILY [facility] Last Admin: 08/14/19 07:13 Dose: 2 each Documented by: Hctz12.5mg/Lisnopril (20mg) 1 each PO DAILY [facility] Last Admin: 08/14/19 07:14 Dose: 1 each Documented by: Insulin Glargine ( (Lantus) 100 Units/Ml) 40 each SUBCUT DAILY [facility] Last Admin: 08/14/19 07:19 Dose: 40 each Documented by: Cholestyramine ( Prevalite) 4gm Packets 1 each PO DAILY [facility] Last Admin: 08/14/19 07:15 Dose: 1 each Documented by: Prochlorperazine Maleate (Compazine) 10 mg PO Q6H PRN PRN Reason: Nausea/Vomiting Last Admin: 08/14/19 07:14 Dose: 10 mg Documented by:
[2019-08-15] MEDS ORDERED: Hydrochlorothiazide 12.5 MG Cap PO SCH (08:00)
[2019-08-15] MEDS ORDERED: Insulin Glargine,Human Rec. Analog 100 Units/ML 3 ML Pen SUBCUT SCH (08:00)
[2019-08-15] MEDS ORDERED: Lisinopril 20 MG Tab PO SCH (08:00)
== END 2019-08-14 11:43 | disposition home or self-care (01) | DRG 809 ==
LOC: LB.ED 20:22 → LB.MS 22:43 → UNDOADMOB 23:00 → LB.MS 23:00 → OBSVTOIN 08-13 16:47
PROVIDERS: ADMIT Surgery; ATTEND Surgery
PROC: 30233N1 Transfusion of Nonautologous Red Blood Cells into Peripheral Vein, Percutaneous Approach (ICD-10-PCS; principal; 2019-08-12)
DX: D70.9 Neutropenia, unspecified (principal); C85.90 Non-Hodgkin lymphoma, unspecified, unspecified site; R50.81 Fever presenting with conditions classified elsewhere; D72.819 Decreased white blood cell count, unspecified; Z20.828 Contact with and (suspected) exposure to other viral communicable diseases; E11.9 Type 2 diabetes mellitus without complications; I10 Essential (primary) hypertension; I25.10 Atherosclerotic heart disease of native coronary artery without angina pectoris; I25.2 Old myocardial infarction; Z79.4 Long term (current) use of insulin; Z79.899 Other long term (current) drug therapy
CPT/HCPCS: 36415 ×3; 36430 ×2; 71046; 80053 ×3; 81001; 83605 ×2; 84443; 85025 ×3; 86850; 86900; 86901; 86920; 86922; 87040 ×2; 87045; 87046; 87086; 87427; 87635; 93005; 96365; 96366 ×2; 96372 ×6; 96375; 96402; 99219; 99225; 99285; A9270 ×23; G0378 ×2; J1940; J2543 ×6; J7050 ×6; P9016 ×2; P9034 ×2; 80048; J1442; Q0164; U0002

== ENCOUNTER 2019-12-22 10:43 | Emergency (ER) | payer OTHER, MEDICARE ==
[2019-12-22] MEDS ORDERED: HYDROmorphone 2 MG/ML SDV IVPUSH ONE (12:06)
--- NOTE | 2019-12-22 12:17 | EDM.PDOC ---
ED HPI GENERAL MEDICAL PROBLEM - General Chief Complaint: General Stated Complaint: LOWER ABD AND LOWER BACK PAIN Time Seen by Provider: 12/22/19 11:35 Source of Information: Reports: Patient History Limitations: Reports: No Limitations - History of Present Illness INITIAL COMMENTS - FREE TEXT/NARRATIVE: 74 year old male with PMH non-Hodgkins Lymphoma with mets and mass on left kidney presents with increased left flank pain x 1 week. Last chemo was at the end of November it the [facility]. Recent left ureter stent placement. Patient had nausea with the pain, denies diarrhea, fever, cough, CP, ABD pain, SOB, urinary symptoms. Location: Reports: Back Improves with: Reports: None Worsens with: Reports: None Associated Symptoms: Reports: No Other Symptoms - Related Data Allergies Allergy/AdvReac Type Severity Reaction Status Date / Time morphine Allergy Anaphylactic Verified 06/21/19 12:36 Shock oxycodone Allergy Rash Verified 08/11/19 21:56 tramadol Allergy Rash Verified 08/11/19 21:56 Home Meds: Home Meds Allopurinol [Zyloprim] 100 mg PO DAILY 06/21/19 [History] Lisinopril/Hydrochlorothiazide [Lisinopril-Hctz 20-12.5 mg Tab] 12.5 - 20 mg PO DAILY 06/21/19 [History] Magnesium Oxide/Vit B6 [Beelith] 280 mg PO DAILY 06/21/19 [History] Non-Formulary Medication [NF Drug] 41 units SQ DAILY 06/21/19 [History] Prochlorperazine [Compazine] 10 mg PO Q6HR PRN MDD 40mg 06/21/19 [History] atorvaSTATin [Lipitor] 10 mg PO DAILY 06/21/19 [History] carvediloL [Carvedilol] 25 mg PO BID 06/21/19 [History] metFORMIN [Glucophage] 1,000 mg PO BID 06/21/19 [History] Acetaminophen [Tylenol Extra Strength] 500 mg PO Q4H PRN tablet 08/14/19 [Rx] Filgrastim [Neupogen] 480 mcg SUBCUT DAILY sdv 08/14/19 [Rx] Insulin Glarg,Human.Rec.Analog [Lantus Solostar] 40 units SUBCUT DAILY pen 08/14/19 [Rx] L.acidoph,Paracasei, B.lactis [Probiotic] 1 each PO BID #60 capsule 08/14/19 [Rx] Levofloxacin 750 mg PO DAILY #14 tablet 08/14/19 [Rx] Non-Formulary Medication [NF Drug] 1 each PO BID each 08/14/19 [Rx] Non-Formulary Medication [NF Drug] 1 each PO DAILY each 08/14/19 [Rx] Non-Formulary Medication [NF Drug] 2 each PO DAILY each 08/14/19 [Rx] Non-Formulary Medication [NF Drug] 2 each PO DAILY each 08/14/19 [Rx] Potassium Chloride 10 meq PO BID #30 cap.er 08/14/19 [Rx] Prochlorperazine [Compazine] 10 mg PO Q6H PRN tablet 08/14/19 [Rx] allopurinoL [Zyloprim] 100 mg PO DAILY tablet 08/14/19 [Rx] atorvaSTATin [Lipitor] 10 mg PO BEDTIME tablet 08/14/19 [Rx] carvediloL [Coreg] 25 mg PO BID tablet 08/14/19 [Rx] hydroCHLOROthiazide [Hydrochlorothiazide] 12.5 mg PO DAILY cap 08/14/19 [Rx] lisinopriL [Prinivil] 20 mg PO DAILY tablet 08/14/19 [Rx] metFORMIN [Glucophage] 1,000 mg PO BID tablet 08/14/19 [Rx] Past Medical History HEENT History: Reports: Impaired Vision Cardiovascular History: Reports: High Cholesterol, Hypertension, MT, Other (See Below) Other Cardiovascular History: mild MT in 93, stent placed 94 Respiratory History: Reports: None Genitourinary History: Reports: None Musculoskeletal History: Reports: Back Pain, Chronic, Other (See Below) Other Musculoskeletal History: neck pain with radicular sx, low back pain with arthritis Neurological History: Reports: None Psychiatric History: Reports: PTSD Endocrine/Metabolic History: Reports: Diabetes, Type II Hematologic History: Reports: None Immunologic History: Reports: None Oncologic (Cancer) History: Reports: Non-Hodgkin's Lymphoma Dermatologic History: Reports: None, Other (See Below) Other Dermatologic History: skin surgery planned - Past Surgical History Cardiovascular Surgical History: Reports: Coronary Artery Stent GI Surgical History: Reports: Appendectomy Social & Family History - Family History Family Medical History: Noncontributory - Caffeine Use Caffeine Use: Reports: Coffee ED ROS GENERAL - Review of Systems Review Of Systems: See Below Constitutional: Reports: No Symptoms HEENT: Reports: No Symptoms Respiratory: Reports: No Symptoms Cardiovascular: Reports: No Symptoms Endocrine: Reports: No Symptoms GI/Abdominal: Reports: No Symptoms : Reports: No Symptoms Musculoskeletal: Reports: Back Pain (left flank) Skin: Reports: No Symptoms Neurological: Reports: No Symptoms Psychiatric: Reports: No Symptoms Hematologic/Lymphatic: Reports: No Symptoms Immunologic: Reports: No Symptoms ED EXAM, GENERAL - Physical Exam Exam: See Below Exam Limited By: No Limitations General Appearance: Alert, No Apparent Distress Eye Exam: Bilateral Eye: Normal Inspection Ears: Normal External Exam Nose: Normal Inspection Throat/Mouth: Normal Inspection, Normal Lips, Normal Voice, No Airway Compromise Head: Atraumatic Neck: Normal Inspection, Full Range of Motion Respiratory/Chest: No Respiratory Distress, Lungs Clear, Normal Breath Sounds Cardiovascular: Normal Peripheral Pulses Peripheral Pulses: 3+: Carotid (L), Carotid (R), Radial (L), Radial (R), Dorsalis Pedis (L), Dorsalis Pedis (R) GI/Abdominal: Normal Bowel Sounds, Soft, Non-Tender Back Exam: Full Range of Motion, CVA Tenderness (L) Extremities: Normal Inspection, Normal Range of Motion, Pedal Edema Neurological: Alert, Oriented, CN II-XII Intact, Normal Gait, No Motor/Sensory Deficits Psychiatric: Normal Affect, Normal Mood Skin Exam: Warm, Dry, Intact Lymphatic: No Adenopathy Course - Vital Signs Last Recorded V/S: Last Vital Signs Temp 97.7 F 12/22/19 11:33 Pulse 98 12/22/19 11:33 Resp 16 12/22/19 11:33 BP 114/68 12/22/19 11:33 Pulse Ox 98 12/22/19 11:33 - Orders/Labs/Meds Orders: Active Orders 24 hr Category Date Time Status Abdomen Pelvis wo Cont [CT] Stat Exams 12/22/19 12:04 Taken CORONAVIRUS COVID-19 RAPID [MOLEC] Stat Lab 12/22/19 13:36 Ordered Labs: Laboratory Tests 12/22/19 12/22/19 12/22/19 Range/Units 12:50 13:00 13:15 WBC 9.2 (4.0-11.0) K/uL RBC 2.78 L (4.50-6.50) M/uL Hgb 8.4 L (13.0-18.0) g/dL Hct 25.2 L (40.0-54.0) % MCV 91 (76-96) fL MCH 30.2 (27.0-32.0) pg MCHC 33.3 (31.0-35.0) g/dL RDW 14.9 (11.0-16.0) % Plt Count 85 L (150-400) K/uL MPV 10.9 H (6.0-10.0) fL Neut % (Auto) 89.9 H (45.0-70.0) % Lymph % (Auto) 4.4 L (20.0-40.0) % [place] % (Auto) 5.1 (3.0-10.0) % Eos % (Auto) 0.5 L (1.0-5.0) % Baso % (Auto) 0.1 (0.0-0.5) % Neut # (Auto) 8.23 H (2.00-7.50) K/uL Lymph # (Auto) 0.40 L (1.50-4.00) K/uL [place] # (Auto) 0.47 (0.20-0.80) K/uL Eos # (Auto) 0.05 (0.04-0.40) K/uL Baso # (Auto) 0.01 L (0.02-0.10) K/uL Sodium 132 L (136-145) mmol/L Potassium 4.1 (3.5-5.1) mmol/L Chloride 99 (98-107) mmol/L Carbon Dioxide 23.8 (21.0-32.0) mmol/L Anion Gap 13.3 (5.0-15.0) mmol/L BUN 25 D (8-26) mg/dL Creatinine 1.65 H (0.70-1.30) mg/dL Est Cr Clr Drug Dosing TNP Estimated GFR (MDRD) 41 L (>60) MLS/MIN BUN/Creatinine Ratio 15.2 (6-25) Glucose 188 H (74-100) mg/dL Calcium 8.5 (8.5-10.1) mg/dL Total Bilirubin 0.6 (0.0-1.0) mg/dL AST 37 (15-37) U/L ALT 28 (12-78) U/L Alkaline Phosphatase 269 H (46-116) U/L B-Natriuretic Peptide (0-125) pg/mL Total Protein 6.2 L (6.4-8.2) g/dL Albumin 2.6 L (3.4-5.0) g/dL Globulin 3.6 (2.2-4.2) g/dL Albumin/Globulin Ratio 0.7 L (0.8-2.0) Urine Color Yellow Urine Appearance Clear (CLEAR) Urine pH 5.0 (5.0-8.0) Ur Specific [place] 1.025 (1.003-1.030) Urine Protein 30 H (NEGATIVE) mg/dL Urine Glucose (UA) Negative (NEGATIVE) mg/dL Urine Ketones Negative (NEGATIVE) mg/dL Urine Occult Blood Moderate H (NEGATIVE) Urine Nitrite Negative (NEGATIVE) Urine Bilirubin Small H (NEGATIVE) Urine Urobilinogen 0.2 (0.2-1.0) E.U./dL Ur Leukocyte Esterase Negative (NEGATIVE) U Hyaline Cast (Auto) Few /HPF Urine RBC 20-30 H /HPF Urine WBC 5-10 H /HPF Ur Epithelial Cells Few /HPF Urine Bacteria Few /HPF 12/22/19 Range/Units 14:05 WBC (4.0-11.0) K/uL RBC (4.50-6.50) M/uL Hgb (13.0-18.0) g/dL Hct (40.0-54.0) % MCV (76-96) fL MCH (27.0-32.0) pg MCHC (31.0-35.0) g/dL RDW (11.0-16.0) % Plt Count (150-400) K/uL MPV (6.0-10.0) fL Neut % (Auto) (45.0-70.0) % Lymph % (Auto) (20.0-40.0) % [place] % (Auto) (3.0-10.0) % Eos % (Auto) (1.0-5.0) % Baso % (Auto) (0.0-0.5) % Neut # (Auto) (2.00-7.50) K/uL Lymph # (Auto) (1.50-4.00) K/uL [place] # (Auto) (0.20-0.80) K/uL Eos # (Auto) (0.04-0.40) K/uL Baso # (Auto) (0.02-0.10) K/uL Sodium (136-145) mmol/L Potassium (3.5-5.1) mmol/L Chloride (98-107) mmol/L Carbon Dioxide (21.0-32.0) mmol/L Anion Gap (5.0-15.0) mmol/L BUN (8-26) mg/dL Creatinine (0.70-1.30) mg/dL Est Cr Clr Drug Dosing Estimated GFR (MDRD) (>60) MLS/MIN BUN/Creatinine Ratio (6-25) Glucose (74-100) mg/dL Calcium (8.5-10.1) mg/dL Total Bilirubin (0.0-1.0) mg/dL AST (15-37) U/L ALT (12-78) U/L Alkaline Phosphatase (46-116) U/L B-Natriuretic Peptide 355 H D (0-125) pg/mL Total Protein (6.4-8.2) g/dL Albumin (3.4-5.0) g/dL Globulin (2.2-4.2) g/dL Albumin/Globulin Ratio (0.8-2.0) Urine Color Urine Appearance (CLEAR) Urine pH (5.0-8.0) Ur Specific [place] (1.003-1.030) Urine Protein (NEGATIVE) mg/dL Urine Glucose (UA) (NEGATIVE) mg/dL Urine Ketones (NEGATIVE) mg/dL Urine Occult Blood (NEGATIVE) Urine Nitrite (NEGATIVE) Urine Bilirubin (NEGATIVE) Urine Urobilinogen (0.2-1.0) E.U./dL Ur Leukocyte Esterase (NEGATIVE) U Hyaline Cast (Auto) /HPF Urine RBC /HPF Urine WBC /HPF Ur Epithelial Cells /HPF Urine Bacteria /HPF Meds: Medications Discontinued Medications Generic Name Dose Route Start Last Admin Trade Name Freq PRN Reason Stop Dose Admin Hydromorphone HCl 1 mg 12/22/19 12:06 Dilaudid IVPUSH 12/22/19 12:07 ONETIME ONE Departure - Departure Time of Disposition: 14:46 Disposition: Against Medical Advice 07 Condition: Undetermined Clinical Impression: Hydronephrosis of left kidney Inflammatory injury of left kidney Qualifiers: Encounter type: initial encounter Qualified Code(s): S37.002A - Unspecified injury of left kidney, initial encounter - Discharge Information *PRESCRIPTION DRUG MONITORING PROGRAM REVIEWED*: Not Applicable *COPY OF PRESCRIPTION DRUG MONITORING REPORT IN PATIENT RANDOLPH: Not Applicable Forms: ED Department Discharge Additional Instructions: Patient signed out AMA, aware of the risks of leaving the hospital. Sepsis Event Note (ED) - Evaluation Sepsis Screening Result: No Definite Risk - Focused Exam Vital Signs: Vital Signs Temp Pulse Resp BP Pulse Ox 12/22/19 11:33 97.7 F 98 16 114/68 98 - My Orders Last 24 Hours: My Active Orders 12/22/19 12:04 Abdomen Pelvis wo Cont [CT] Stat 12/22/19 13:36 CORONAVIRUS COVID-19 RAPID [MOLEC] Stat - Assessment/Plan Last 24 Hours: My Active Orders 12/22/19 12:04 Abdomen Pelvis wo Cont [CT] Stat 12/22/19 13:36 CORONAVIRUS COVID-19 RAPID [MOLEC] Stat Assessment:: Patient has Extensive inflammatory changes around the left kidney and left collecting system and left ureter. Ruptured fornix may be present. 1310 CT report discussed with patient and , will call [facility] for admission. 1325 [facility] cannot accept patient due to having no rooms. Records requested from [place]. 1350 Patient and aware of [facility] situation, will call [facility]. 1353 [facility] also has no rooms available. [address] [facility] called, they are unable to accept the patient due to his need for specialty care. 1410 Attempted the [facility] again for suggestions, they have none. 1412 [place] called, no rooms available. Patient and are aware of the situation. 1415 [facility] called, Spoke with Dr. Camp, she is requesting more records from, but will potentially admit patient. Went to speak with patient, he would like to sign out AMA and his plan is to drive to the [facility] ER. He is aware of the pending admission in [place], we discussed reasons why I recommend admission now: pain control, urology consult in [place], continous monitoring. Patient is aware that if he leaves he might , he is still willing to leave AMA. Paperwork completed. [facility] called and admission cancelled.
--- NOTE | 2019-12-22 19:01 | CT ---
DATE OF SERVICE: 12/22/2019 CLINICAL DATA: Pain. UNENHANCED ABDOMEN AND PELVIC CT: Multislice axial acquisition through the abdomen and pelvis without IV or oral contrast was performed. No priors. The lung bases are clear. There is a small hiatal hernia. The heart size is normal. There are coronary artery calcifications. The liver is normal size with homogeneous attenuation. No focal hepatic lesions. The gallbladder appears normal. The spleen appears normal. The pancreas appears normal. The right and left adrenals appear normal. The right kidney appears normal. The left kidney is abnormal. There is a left ureteral stent in place. The proximal pigtail is located in the left renal pelvis. The distal pigtail is located within the bladder. There is marked swelling of the left kidney. There is also marked hydronephrosis of the left collecting system and hydroureter proximally. There is extensive fat stranding and fat infiltration involved in the perinephric space as well as the anterior pararenal space. There is also extensive fat stranding adjacent to the left collecting system and left ureter. No nephrocalcinosis or nephrolithiasis. No evidence of a ureteral calculi. An obstructed left ureteral stent should be considered. Findings involving the left kidney, left perinephric space, left anterior pararenal space, and adjacent to the left ureter most likely related to an infectious or inflammatory process. The bladder is partially fluid filled and appears normal. The prostate is mildly enlarged. No evidence of appendicitis. There is diverticulosis of the colon. No evidence of diverticulitis. No free air. No free fluid. No dilated loops of bowel. No adenopathy. No aortic aneurysm. There is a fat containing umbilical hernia. There is a left inguinal hernia containing fat. There is also a soft tissue density mass in the left inguinal canal. Ultrasound may be helpful. No other significant findings. IMPRESSION: I abnormal exam. See above. [id number] [facility]
== END 2019-12-22 14:50 | disposition left against medical advice (07) ==
LOC: LB.ED 10:43
DX: N13.2 Hydronephrosis with renal and ureteral calculous obstruction (principal); S37.002A Unspecified injury of left kidney, initial encounter; E11.9 Type 2 diabetes mellitus without complications; I10 Essential (primary) hypertension; I25.2 Old myocardial infarction; C85.90 Non-Hodgkin lymphoma, unspecified, unspecified site; Z88.5 Allergy status to narcotic agent; Z79.4 Long term (current) use of insulin; Z95.5 Presence of coronary angioplasty implant and graft; Z90.49 Acquired absence of other specified parts of digestive tract; Z79.899 Other long term (current) drug therapy; X58.XXXA Exposure to other specified factors, initial encounter
CPT/HCPCS: 36415; 74176; 80053; 81001; 83880; 85025; 99284-25

== ENCOUNTER 2020-01-01 08:13 | Observation (INO) | payer OTHER ==
[2020-01-01] MEDS ORDERED: TYLENOL 500 MG PO PRN (11:01)
[2020-01-01] MEDS ORDERED: Non-Formulary Medication 1 Each (Prochlorperazine [Compazine] 10 MG) PO PRN (11:01)
[2020-01-01] MEDS ORDERED: Ondansetron 4 MG Tab.DIS PO PRN (11:01)
[2020-01-01] MEDS ORDERED: Ondansetron 4 MG/2 ML SDV IV PRN (11:05)
[2020-01-01] MEDS: Sodium Chloride 0.9% 1,000 ML IV SCH ×2 (11:20→19:01)
[2020-01-01] MEDS ORDERED: Loperamide 2 MG Cap ONE (13:19)
[2020-01-01] MEDS: Loperamide 2 MG Cap PO PRN ×2 (13:20→17:53)
[2020-01-01] MEDS: oxyCODONE 5 MG Tab PO SCH (14:15)
--- NOTE | 2020-01-01 14:38 | ER ---
HISTORY OF PRESENT ILLNESS: A 74-year-old male who comes in with his with complaints of weakness for the last 2 to 3 days. He has had some episodes of diarrhea and has actually dry heaves on a couple of occasions, and his noted a low-grade temp yesterday of 100.4. This has resolved today. The patient states he does not feel sick he just feels weak. He has not been coughing. There has been no problems with shortness of breath or wheezing. PAST MEDICAL HISTORY: Includes non-Hodgkin's lymphoma with mets and a mass on the left kidney. The patient was recently seen here on December 21, and the CT report at that time was suspicious for an obstructive left ureteral stent. The patient was then transferred to the [facility] in [place] and a new stent was placed. The patient states that he definitely feels better with the pain he was having from that. He has chronic low back pain and he states that the pain he is having now is more his normal level of pain. The patient has history of anemia. He has had multiple blood transfusions in the past, and his feels he is probably needing another one. MEDICATIONS: He is on pain medications including oxycodone 5 mg p.r.n., Tylenol p.r.n., and he is currently taking Bactrim DS. OBJECTIVE: GENERAL APPEARANCE: The patient is awake and alert. No respiratory distress. He is pleasant and talkative. VITAL SIGNS: Reviewed. Blood pressure 112/47. He is afebrile. Pulse 105, respirations 18, O2 sats are 98% on room air. HEENT: Oral mucous membranes are slightly dry. Tonsils are not enlarged or injected. Pharynx not inflamed. NECK: Supple. LUNGS: Reveals lungs are clear with slightly reduced air exchange throughout the lung little. CARDIAC: Heart sounds distinct. S1, S2 present. No murmurs. ABDOMEN: Soft, protuberant, nontender with light palpation. I did examine the surgical site from the ureter stent placement a few days ago and it appears to be good. There is no sign of redness, infection, or swelling. His tells me that she has been very satisfied when she changed the dressing as well that nothing looks abnormal. LABORATORY DATA: Labs today include a CBC showing a slightly elevated white count of 13.1, hemoglobin is 7.1, which is slightly lower than before. Hematocrit 21.8 and platelets are 130. Comprehensive metabolic panel shows a sodium level of 131, potassium level is good, BUN is 39, creatinine 2.56. The patient's previous BUN was 25 and creatinine 1.65, so his numbers are slightly elevated today. COVID test is negative. DIAGNOSIS: Anemia with fairly significant weakness. TREATMENT PLAN: The patient will be admitted for observation. We will give him a liter of IV fluids and he will be getting a transfusion of 2 units of packed RBCs. The patient will be monitored overnight and most likely discharged in the morning. The patient and his have no further questions. I did ask him about his code status. His tells me that at one point he was DNR, but now he has decided that he wants to be a full code. CRS/MODL /[id number]
--- NOTE | 2020-01-01 14:47 | ADMIT ---
HISTORY OF PRESENT ILLNESS: He is being admitted through the emergency room for anemia with significant weakness. The patient will be given IV fluids and a blood transfusion with 2 units of packed RBCs. The patient admits with mainly symptoms of weakness. He has chronic back pain. He was recently seen here on December 21 and he ended up going to the OR in the [facility]. He had an obstructed ureteral stent which was replaced. He states he definitely feels better with the symptoms of pain he was having at that time. The patient has history of anemia and has had blood transfusions previously, in fact the most recent was less than 3 months ago. He usually does well after a blood transfusion. The patient will be admitted for observation PHYSICAL EXAMINATION: VITAL SIGNS: Initially in the ER reveal he is afebrile with a temp of 98.1, pulse 105, blood pressure 112/47, respirations 18, O2 sats 98%. ASSESSMENT AND PLAN: The patient has mild swelling involving the left ankle. This will be monitored when he is here. He was able to eat regular food in the emergency room and he did well with this. The patient will be taking his own home medications except for narcotics, which I understand will be given through the hospital. If he responds well, most likely he will be going home tomorrow morning. CRS/MODL /[id number]
[2020-01-01] MEDS ORDERED: TRIMETHOPRIM PO SCH (20:00)
[2020-01-01] MEDS ORDERED: SULFAMETHOXAZOLE PO SCH (20:00)
[2020-01-01] MEDS ORDERED: ATORVASTATIN 20 MG PO SCH (20:00)
[2020-01-01] MEDS ORDERED: Non-Formulary Medication 1 Each (L.Acidoph,Paracasei, B.Lactis [Probiotic] 1 EACH) PO SCH (20:00)
[2020-01-01] MEDS ORDERED: [UNRECOGNIZED DRUG - OTHER] PO SCH (20:00)
[2020-01-01] MEDS ORDERED: MAGNESIUM OXIDE PO SCH (20:00)
[2020-01-01] MEDS ORDERED: PYRIDOXINE PO SCH (20:00)
[2020-01-01] MEDS ORDERED: Non-Formulary Medication 1 Each (Carvedilol [Coreg] 25 MG) PO SCH (20:00)
[2020-01-01] MEDS ORDERED: BACTRIM DS PO SCH (20:00)
[2020-01-01] MEDS ORDERED: ATORVASTATIN 10 MG PO SCH (20:00)
[2020-01-01] MEDS: MAGNESIUM OXIDE 420 MG PO SCH (21:07)
[2020-01-01] MEDS: BACTRIM DS PO SCH (21:50)
[2020-01-02] MEDS: oxyCODONE 5 MG Tab PO SCH (02:18)
[2020-01-02] MEDS ORDERED: AMLODIPINE BESYLATE 5 MG PO SCH (08:00)
[2020-01-02] MEDS ORDERED: Non-Formulary Medication 1 Each (Allopurinol [Zyloprim] 100 MG) PO SCH (08:00)
[2020-01-02] MEDS ORDERED: [UNRECOGNIZED DRUG - OTHER] SUBCUT SCH (08:00)
[2020-01-02] MEDS ORDERED: INSULIN GLARG HUMAN REC ANALOG SUBCUT SCH (08:00)
[2020-01-02] MEDS ORDERED: FILGRASTIM 480 MCG SUBCUT SCH (08:00)
[2020-01-02] MEDS ORDERED: Non-Formulary Medication 1 Each (Tamsulosin [Flomax] 0.4 MG) PO SCH (08:00)
[2020-01-02] MEDS: MAGNESIUM OXIDE 420 MG PO SCH (08:26)
[2020-01-02] MEDS: BACTRIM DS PO SCH (08:28)
[2020-01-02] MEDS ORDERED: Acetaminophen 500 MG Tab ONE (09:15)
--- NOTE | 2020-01-02 09:42 | PCM.DCSUM1 ---
Discharge Summary - Hospital Course Free Text/Narrative:: Patient is a 74 y/o male with history of cancer and chronic anemia/blood transfusions, who presents for generalized weakness. He was found to be anemic and with acute renal insufficiency. Patient received blood and a liter of NS. He feels better today. His Hgb and renal function is improved. - Discharge Data Discharge Date: 01/02/20 Discharge Disposition: Home, Self-Care 01 Condition: Good - Referral to Home Health Primary Care Physician: Jasmeet Gloria MD - Discharge Plan *PRESCRIPTION DRUG MONITORING PROGRAM REVIEWED*: Not Applicable *COPY OF PRESCRIPTION DRUG MONITORING REPORT IN PATIENT RANDOLPH: Not Applicable Home Medications: Home Meds Allopurinol [Zyloprim] 100 mg PO DAILY 06/21/19 [History] Magnesium Oxide/Vit B6 [Beelith] 420 mg PO BID 06/21/19 [History] Prochlorperazine [Compazine] 10 mg PO Q6HR PRN MDD 40mg 06/21/19 [History] Acetaminophen [Tylenol Extra Strength] 500 mg PO Q4H PRN tablet 08/14/19 [Rx] Filgrastim [Neupogen] 480 mcg SUBCUT DAILY sdv 08/14/19 [Rx] Insulin Glarg,Human.Rec.Analog [Lantus Solostar] 40 units SUBCUT DAILY pen 08/14/19 [Rx] L.acidoph,Paracasei, B.lactis [Probiotic] 1 each PO BID #60 capsule 08/14/19 [Rx] allopurinoL [Zyloprim] 100 mg PO DAILY tablet 08/14/19 [Rx] atorvaSTATin [Lipitor] 10 mg PO BEDTIME tablet 08/14/19 [Rx] Docusate Sodium [Colace Clear] 50 mg PO DAILY PRN 01/01/20 [History] Ondansetron [Zuplenz] 4 mg PO Q8HR PRN 01/01/20 [History] Sulfamethoxazole/Trimethoprim [Bactrim Ds Tablet] 160 mg PO BID 01/01/20 [History] Tamsulosin [Tamsulosin 24 Hr] 0.4 mg PO DAILY 01/01/20 [History] amLODIPine Besylate [Amlodipine Besylate] 5 mg PO DAILY 01/01/20 [History] oxyCODONE 5 mg PO ASDIRECTED 01/01/20 [History] polyethylene glycoL 3350 [Miralax] 17 gm PO DAILY PRN 01/01/20 [History] Forms: ED Department Discharge Referrals: Jasmeet Gloria MD [Primary Care Provider] - - Discharge Summary/Plan Comment DC Time >30 min.: Yes Discharge Summary/Plan Comment: [facility] and schedule weekly labs and transfusions as indicated. Continue current meds as directed. Drink plenty of fluids daily to help with kidney function. - General Info Date of Service: 01/02/20 Admission Dx/Problem (Free Text: Anemia and acute renal insufficiency Functional Status: Reports: Tolerating Diet, Ambulating - Review of Systems General: Reports: No Symptoms HEENT: Reports: No Symptoms Pulmonary: Reports: No Symptoms Cardiovascular: Reports: No Symptoms Gastrointestinal: Reports: No Symptoms Genitourinary: Reports: No Symptoms Musculoskeletal: Reports: No Symptoms Skin: Reports: No Symptoms Neurological: Reports: No Symptoms - Patient Data Vitals - Most Recent: Last Vital Signs Temp 36.6 C 01/02/20 00:00 Pulse 94 01/02/20 00:00 Resp 16 01/02/20 04:00 BP 148/69 H 01/02/20 00:00 Pulse Ox 97 01/02/20 00:00 Weight - Most Recent: 99.11 kg I&O - Last 24 hours: Intake & Output 01/01/20 01/02/20 01/02/20 22:59 06:59 14:59 Intake Total 1284 1000 Balance 1284 1000 Lab Results - Last 24 hrs: Laboratory Results - last 24 hr 01/01/20 01/01/20 01/01/20 Range/Units 09:27 09:27 09:27 WBC 13.1 H D (4.0-11.0) K/uL RBC 2.33 L (4.50-6.50) M/uL Hgb 7.1 L (13.0-18.0) g/dL Hct 21.8 L (40.0-54.0) % MCV 94 (76-96) fL MCH 30.5 (27.0-32.0) pg MCHC 32.6 (31.0-35.0) g/dL RDW 15.4 (11.0-16.0) % Plt Count 130 L D (150-400) K/uL MPV 9.3 (6.0-10.0) fL Neut % (Auto) 85.7 H (45.0-70.0) % Lymph % (Auto) 4.8 L (20.0-40.0) % [place] % (Auto) 9.2 (3.0-10.0) % Eos % (Auto) 0.1 L (1.0-5.0) % Baso % (Auto) 0.2 (0.0-0.5) % Neut # (Auto) 11.19 H (2.00-7.50) K/uL Lymph # (Auto) 0.63 L (1.50-4.00) K/uL [place] # (Auto) 1.20 H (0.20-0.80) K/uL Eos # (Auto) 0.01 L (0.04-0.40) K/uL Baso # (Auto) 0.02 (0.02-0.10) K/uL Sodium 131 L (136-145) mmol/L Potassium 4.6 (3.5-5.1) mmol/L Chloride 97 L (98-107) mmol/L Carbon Dioxide 19.0 L D (21.0-32.0) mmol/L Anion Gap 19.6 H (5.0-15.0) mmol/L BUN 39 H D (8-26) mg/dL Creatinine 2.56 H D (0.70-1.30) mg/dL Est Cr Clr Drug Dosing 24.49 mL/min Estimated GFR (MDRD) 25 L (>60) MLS/MIN BUN/Creatinine Ratio 15.2 (6-25) Glucose 212 H (74-100) mg/dL Uric Acid (2.6-7.2) mg/dL Calcium 8.1 L (8.5-10.1) mg/dL Phosphorus (2.5-4.9) mg/dL Total Bilirubin 0.5 (0.0-1.0) mg/dL AST 33 (15-37) U/L ALT 23 (12-78) U/L Alkaline Phosphatase 341 H (46-116) U/L Total Protein 5.7 L (6.4-8.2) g/dL Albumin 2.0 L (3.4-5.0) g/dL Globulin 3.7 (2.2-4.2) g/dL Albumin/Globulin Ratio 0.5 L (0.8-2.0) Urine Color Urine Appearance (CLEAR) Urine pH (5.0-8.0) Ur Specific [place] (1.003-1.030) Urine Protein (NEGATIVE) mg/dL Urine Glucose (UA) (NEGATIVE) mg/dL Urine Ketones (NEGATIVE) mg/dL Urine Occult Blood (NEGATIVE) Urine Nitrite (NEGATIVE) Urine Bilirubin (NEGATIVE) Urine Urobilinogen (0.2-1.0) E.U./dL Ur Leukocyte Esterase (NEGATIVE) Urine RBC /HPF Urine WBC /HPF SARS CoV-2 RNA Rapid VANESSA Negative Blood Type Gel Antibody Screen Crossmatch 01/01/20 01/01/20 01/01/20 Range/Units 09:27 09:27 10:46 WBC (4.0-11.0) K/uL RBC (4.50-6.50) M/uL Hgb (13.0-18.0) g/dL Hct (40.0-54.0) % MCV (76-96) fL MCH (27.0-32.0) pg MCHC (31.0-35.0) g/dL RDW (11.0-16.0) % Plt Count (150-400) K/uL MPV (6.0-10.0) fL Neut % (Auto) (45.0-70.0) % Lymph % (Auto) (20.0-40.0) % [place] % (Auto) (3.0-10.0) % Eos % (Auto) (1.0-5.0) % Baso % (Auto) (0.0-0.5) % Neut # (Auto) (2.00-7.50) K/uL Lymph # (Auto) (1.50-4.00) K/uL [place] # (Auto) (0.20-0.80) K/uL Eos # (Auto) (0.04-0.40) K/uL Baso # (Auto) (0.02-0.10) K/uL Sodium (136-145) mmol/L Potassium (3.5-5.1) mmol/L Chloride (98-107) mmol/L Carbon Dioxide (21.0-32.0) mmol/L Anion Gap (5.0-15.0) mmol/L BUN (8-26) mg/dL Creatinine (0.70-1.30) mg/dL Est Cr Clr Drug Dosing mL/min Estimated GFR (MDRD) (>60) MLS/MIN BUN/Creatinine Ratio (6-25) Glucose (74-100) mg/dL Uric Acid 5.7 (2.6-7.2) mg/dL Calcium (8.5-10.1) mg/dL Phosphorus 4.7 (2.5-4.9) mg/dL Total Bilirubin (0.0-1.0) mg/dL AST (15-37) U/L ALT (12-78) U/L Alkaline Phosphatase (46-116) U/L Total Protein (6.4-8.2) g/dL Albumin (3.4-5.0) g/dL Globulin (2.2-4.2) g/dL Albumin/Globulin Ratio (0.8-2.0) Urine Color Urine Appearance (CLEAR) Urine pH (5.0-8.0) Ur Specific [place] (1.003-1.030) Urine Protein (NEGATIVE) mg/dL Urine Glucose (UA) (NEGATIVE) mg/dL Urine Ketones (NEGATIVE) mg/dL Urine Occult Blood (NEGATIVE) Urine Nitrite (NEGATIVE) Urine Bilirubin (NEGATIVE) Urine Urobilinogen (0.2-1.0) E.U./dL Ur Leukocyte Esterase (NEGATIVE) Urine RBC /HPF Urine WBC /HPF SARS CoV-2 RNA Rapid VANESSA Blood Type O POSITIVE Gel Antibody Screen Negative Crossmatch See Detail 01/01/20 01/02/20 01/02/20 Range/Units 12:10 07:50 07:50 WBC 9.6 D (4.0-11.0) K/uL RBC 2.91 L (4.50-6.50) M/uL Hgb 8.8 L D (13.0-18.0) g/dL Hct 26.1 L (40.0-54.0) % MCV 90 (76-96) fL MCH 30.2 (27.0-32.0) pg MCHC 33.7 (31.0-35.0) g/dL RDW 15.7 (11.0-16.0) % Plt Count 126 L (150-400) K/uL MPV 8.9 (6.0-10.0) fL Neut % (Auto) 83.2 H (45.0-70.0) % Lymph % (Auto) 8.3 L (20.0-40.0) % [place] % (Auto) 7.6 (3.0-10.0) % Eos % (Auto) 0.7 L (1.0-5.0) % Baso % (Auto) 0.2 (0.0-0.5) % Neut # (Auto) 7.98 H (2.00-7.50) K/uL Lymph # (Auto) 0.80 L (1.50-4.00) K/uL [place] # (Auto) 0.73 (0.20-0.80) K/uL Eos # (Auto) 0.07 (0.04-0.40) K/uL Baso # (Auto) 0.02 (0.02-0.10) K/uL Sodium 134 L (136-145) mmol/L Potassium 4.1 (3.5-5.1) mmol/L Chloride 99 (98-107) mmol/L Carbon Dioxide 22.0 (21.0-32.0) mmol/L Anion Gap 17.1 H (5.0-15.0) mmol/L BUN 33 H (8-26) mg/dL Creatinine 1.76 H D (0.70-1.30) mg/dL Est Cr Clr Drug Dosing 35.63 mL/min Estimated GFR (MDRD) 38 L (>60) MLS/MIN BUN/Creatinine Ratio 18.8 (6-25) Glucose 75 D (74-100) mg/dL Uric Acid (2.6-7.2) mg/dL Calcium 8.0 L (8.5-10.1) mg/dL Phosphorus (2.5-4.9) mg/dL Total Bilirubin (0.0-1.0) mg/dL AST (15-37) U/L ALT (12-78) U/L Alkaline Phosphatase (46-116) U/L Total Protein (6.4-8.2) g/dL Albumin (3.4-5.0) g/dL Globulin (2.2-4.2) g/dL Albumin/Globulin Ratio (0.8-2.0) Urine Color Yellow Urine Appearance Clear (CLEAR) Urine pH 5.0 (5.0-8.0) Ur Specific [place] >= 1.030 (1.003-1.030) Urine Protein Trace H (NEGATIVE) mg/dL Urine Glucose (UA) Negative (NEGATIVE) mg/dL Urine Ketones Negative (NEGATIVE) mg/dL Urine Occult Blood Moderate H (NEGATIVE) Urine Nitrite Negative (NEGATIVE) Urine Bilirubin Negative (NEGATIVE) Urine Urobilinogen 0.2 (0.2-1.0) E.U./dL Ur Leukocyte Esterase Negative (NEGATIVE) Urine RBC 10-20 H /HPF Urine WBC 0-5 H /HPF SARS CoV-2 RNA Rapid VANESSA Blood Type Gel Antibody Screen Crossmatch Med Orders - Current: Current Medications Sodium Chloride (Normal Saline) 1,000 mls @ 75 mls/hr IV ASDIRECTED [facility] Last Admin: 01/01/20 19:01 Dose: 125 mls/hr Documented by: Loperamide HCl (Imodium) 2 mg PO Q6H PRN PRN Reason: Diarrhea Last Admin: 01/01/20 17:53 Dose: 2 mg Documented by: Tylenol 500 Mg Tabs (*Pt Own Med*) 500 mg PO Q4H PRN PRN Reason: Headache Last Admin: 01/01/20 21:06 Dose: 500 mg Documented by: Non-Formulary Medication (Allopurinol [Zyloprim]) 100 mg PO DAILY [facility] Non-Formulary Medication (Amlodipine Besylate [Amlodipine Besylate]) 5 mg PO DAILY [facility] Last Admin: 01/02/20 08:26 Dose: 5 mg Documented by: Non-Formulary Medication (Filgrastim [Neupogen]) 480 mcg SUBCUT DAILY [facility] Non-Formulary Medication (Insulin Glarg,Human.Rec.Analog [Lantus Solostar]) 40 units SUBCUT DAILY [facility] Non-Formulary Medication (Polyethylene Glycol 3350 [Miralax]) 17 gm PO DAILY PRN PRN Reason: Constipation Non-Formulary Medication (Prochlorperazine [Compazine]) 10 mg PO Q6HR PRN PRN Reason: Nausea Non-Formulary Medication (Tamsulosin [Flomax]) 0.4 mg PO DAILY [facility] Magnesium Oxide 420 (Mg *Pt Own Med*) 0 mg PO BID [facility] Last Admin: 01/02/20 08:26 Dose: 420 mg Documented by: Bactrim Ds 800/160 (Mg Tab *Pt Own Med*) 0 mg PO BID [facility] Last Admin: 01/02/20 08:28 Dose: 800 mg Documented by: Ondansetron HCl (Zofran Odt) 4 mg PO Q8HR PRN PRN Reason: Nausea Oxycodone HCl (Oxycodone) 5 mg PO ASDIRECTED [facility] Last Admin: 01/02/20 02:18 Dose: 5 mg Documented by: Atorvastatin 20 Mg (Tab * Pt Own Med*) 0 each PO BEDTIME [facility] Last Admin: 01/01/20 20:45 Dose: 1 each Documented by: Discontinued Medications Acetaminophen (Tylenol Extra Strength) Confirm Administered Dose 500 mg .ROUTE .STK-MED ONE Stop: 01/02/20 09:16 Loperamide HCl (Imodium) Confirm Administered Dose 2 mg .ROUTE .STK-MED ONE Stop: 01/01/20 13:20 Last Admin: 01/01/20 16:06 Dose: Not Given Documented by: Non-Formulary Medication (Atorvastatin [Lipitor]) 10 mg PO BEDTIME [facility] Last Admin: 01/02/20 09:24 Dose: Not Given Documented by: Non-Formulary Medication (Carvedilol [Coreg]) 25 mg PO BID [facility] Last Admin: 01/02/20 09:33 Dose: Not Given Documented by: Non-Formulary Medication (L.Acidoph,Paracasei, B.Lactis [Probiotic]) 1 each PO BID [facility] Non-Formulary Medication (Magnesium Oxide/Vit B6 [Beelith]) 420 mg PO BID [facility] Non-Formulary Medication (Sulfamethoxazole/Trimethoprim [Bactrim Ds Tablet]) 160 mg PO BID [facility] Bactrim Ds 800/160 (Mg Tab *Pt Own Med*) 0 mg PO BID [facility] Ondansetron HCl (Zofran) 4 mg IV Q6H PRN PRN Reason: Nausea/Vomiting - Exam General: Reports: Alert, Oriented, Cooperative HEENT: Reports: Pupils Equal, Pupils Reactive Neck: Reports: Supple, Trachea Midline Lungs: Reports: Clear to Auscultation, Normal Respiratory Effort Cardiovascular: Reports: Regular Rate, Regular Rhythm GI/Abdominal Exam: Normal Bowel Sounds, Soft, Non-Tender, No Distention (Male) Exam: Other (nephrostomy bag with clear and yellow urine) Extremities: Normal Inspection, Normal Range of Motion, Non-Tender, Normal Capillary Refill, Other (2+ pitting edema in left lower extremity) Skin: Reports: Warm, Dry, Intact Neurological: Reports: No New Focal Deficit Psy/Mental Status: Reports: Alert, Normal Affect
== END 2020-01-02 10:30 | disposition home or self-care (01) ==
LOC: LB.ED 08:13 → LB.MS 11:00
PROVIDERS: ADMIT Physician Assistant; ATTEND Physician Assistant
DX: D64.9 Anemia, unspecified (principal); G89.29 Other chronic pain; M54.5 Low back pain; Z79.899 Other long term (current) drug therapy; Z20.828 Contact with and (suspected) exposure to other viral communicable diseases
CPT/HCPCS: 36415; 36430; 80048; 80053; 81001; 84100; 84550; 85025; 86850; 86900; 86901; 86920; 86922; 96372; 99285; A9270-GY; G0378; J7030; P9016; U0002

== ENCOUNTER 2020-01-19 14:53 | Emergency (ER) | payer OTHER ==
[~2020-01-19 14:53] MED LIST: Ondansetron 4 MG Tab.DIS ONE
[2020-01-19] MEDS: Ondansetron 4 MG/2 ML SDV IVPUSH ONE (16:55)
[2020-01-19] MEDS: HYDROmorphone 2 MG/ML SDV IVPUSH ONE (16:59)
[2020-01-19] MEDS: Sodium Chloride 0.9% 1,000 ML IV SCH (17:20)
[2020-01-19] MEDS: HYDROmorphone 4 MG/ML Syringe IVPUSH ONE (17:55)
--- NOTE | 2020-01-19 19:38 | EDM.PDOC ---
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 He takes oxycodone for pain, but it isn't last as long. Patient's is leaning towards comfort measures, but hadn't made any decisions yet. Associated shortness of breath that has been going one awhile (COVID negative since Monday) and patient found to be febrile (100.8) and tachycardic (130s). He denies any headache, vision changes, dizziness, chest pain, abdominal pain, N/V/D or dysuria. Recent discharge from [place] on monday. - Related Data Allergies Allergy/AdvReac Type Severity Reaction Status Date / Time morphine Allergy Anaphylactic Verified 01/01/20 08:55 Shock tramadol Allergy Rash Verified 01/01/20 08:55 oxycodone AdvReac Rash Verified 01/19/20 16:46 Home Meds: Home Meds RX: Allopurinol [Zyloprim] 100 mg PO DAILY 06/21/19 [History] RX: Magnesium Oxide/Vit B6 [Beelith] 420 mg PO BID 06/21/19 [History] RX: Prochlorperazine [Compazine] 10 mg PO Q6HR PRN MDD 40mg 06/21/19 [History] L.acidoph,Paracasei, B.lactis [Probiotic] 1 each PO BID #60 capsule 08/14/19 [Rx] RX: Acetaminophen [Tylenol Extra Strength] 500 mg PO Q4H PRN tablet 08/14/19 [Rx] RX: Filgrastim [Neupogen] 480 mcg SUBCUT DAILY sdv 08/14/19 [Rx] RX: Insulin Glarg,Human.Rec.Analog [Lantus Solostar] 40 units SUBCUT DAILY pen 08/14/19 [Rx] RX: allopurinoL [Zyloprim] 100 mg PO DAILY tablet 08/14/19 [Rx] RX: atorvaSTATin [Lipitor] 10 mg PO BEDTIME tablet 08/14/19 [Rx] Docusate Sodium [Colace Clear] 50 mg PO DAILY PRN 01/01/20 [History] Ondansetron [Zuplenz] 4 mg PO Q8HR PRN 01/01/20 [History] RX: oxyCODONE 5 mg PO ASDIRECTED 01/01/20 [History] Sulfamethoxazole/Trimethoprim [Bactrim Ds Tablet] 160 mg PO BID 01/01/20 [History] Tamsulosin [Tamsulosin 24 Hr] 0.4 mg PO DAILY 01/01/20 [History] amLODIPine Besylate [Amlodipine Besylate] 5 mg PO DAILY 01/01/20 [History] polyethylene glycoL 3350 [Miralax] 17 gm PO DAILY PRN 01/01/20 [History] Past Medical History HEENT History: Reports: Impaired Vision Cardiovascular History: Reports: High Cholesterol, Hypertension, [place], Other (See Below) Other Cardiovascular History: mild TN in 93, stent placed 94 Respiratory History: Reports: None Genitourinary History: Reports: None Musculoskeletal History: Reports: Back Pain, Chronic, Other (See Below) Other Musculoskeletal History: neck pain with radicular sx, low back pain with arthritis Neurological History: Reports: None Psychiatric History: Reports: PTSD Endocrine/Metabolic History: Reports: Diabetes, Type II Hematologic History: Reports: Anemia, Blood Transfusion(s) Immunologic History: Reports: None Oncologic (Cancer) History: Reports: Non-Hodgkin's Lymphoma Dermatologic History: Reports: None, Other (See Below) Other Dermatologic History: skin surgery planned - Past Surgical History Cardiovascular Surgical History: Reports: Coronary Artery Stent GI Surgical History: Reports: Appendectomy Social & Family History - Family History Family Medical History: No Pertinent Family History - Caffeine Use Caffeine Use: Reports: Coffee ED ROS GENERAL - Review of Systems Review Of Systems: See Below Constitutional: Reports: Fever HEENT: Reports: No Symptoms Respiratory: Reports: Shortness of Breath Cardiovascular: Reports: No Symptoms GI/Abdominal: Reports: No Symptoms : Reports: No Symptoms, Other (nephrostromy bag) Musculoskeletal: Reports: Back Pain Skin: Reports: No Symptoms Neurological: Reports: No Symptoms ED EXAM, GENERAL - Physical Exam Exam: See Below Exam Limited By: No Limitations General Appearance: Alert, No Apparent Distress Head: Atraumatic, Normocephalic Respiratory/Chest: No Respiratory Distress, Lungs Clear, Normal Breath Sounds, No Accessory Muscle Use, Chest Non-Tender, Other (tachypnea, but comfortable; r ight sided port) Cardiovascular: Normal Peripheral Pulses, No Murmur, Tachycardia, Other (left lower extremity +2 pitting edema) Extremities: Normal Inspection, Normal Range of Motion, Non-Tender, Normal Capillary Refill Neurological: Alert, Oriented, CN II-XII Intact, Normal Cognition, No Motor/Sensory Deficits Psychiatric: Normal Affect, Normal Mood Skin Exam: Warm, Dry, Intact, Normal Color, No Rash Course - Vital Signs Text/Narrative:: Patient with leukopenia, hyperkalemia, low platelets, renal failure, and lactic acidosis. Discussed in depth with and patient. They both agreed to no more interventions and wanted to go home to peacefully. signed advance directive for DNR/DNI and comfort measures only. They both understood without dialysis, patient's kidneys will fail and he will in 1-2 days. Patient given dilaudid in ER with improvement in pain. Discussed with [facility] (pharmacy), Dr. Gloria, and Dr. Moreno (patient's oncologist). Will discharge patient home with oxycontin 10 mg PO every 8 hours (prescription) and zofran every 8 hours for N/V. Take oxycodone as directed every 4 hours for breakthrough pain. - Orders/Labs/Meds Orders: Active Orders 24 hr Category Date Time Status Chest 1V Frontal [CR] Stat Exams 01/19/20 16:42 Taken CULTURE BLOOD [BC] Stat Lab 01/19/20 16:45 Received CULTURE BLOOD [BC] Stat Lab 01/19/20 16:45 Received CULTURE URINE [RM] Stat Lab 01/19/20 17:20 Received Labs: Laboratory Tests 01/19/20 01/19/20 01/19/20 Range/Units 17:00 17:00 17:00 WBC 2.2 L D (4.0-11.0) K/uL RBC 2.83 L (4.50-6.50) M/uL Hgb 8.4 L (13.0-18.0) g/dL Hct 25.6 L (40.0-54.0) % MCV 91 (76-96) fL MCH 29.7 (27.0-32.0) pg MCHC 32.8 (31.0-35.0) g/dL RDW 16.4 H (11.0-16.0) % Plt Count 64 L D (150-400) K/uL MPV 10.3 H (6.0-10.0) fL Neut % (Auto) 80.9 H (45.0-70.0) % Lymph % (Auto) 13.8 L (20.0-40.0) % [place] % (Auto) 4.5 (3.0-10.0) % Eos % (Auto) 0.4 L (1.0-5.0) % Baso % (Auto) 0.4 (0.0-0.5) % Neut # (Auto) 1.81 L (2.00-7.50) K/uL Lymph # (Auto) 0.31 L (1.50-4.00) K/uL [place] # (Auto) 0.10 L (0.20-0.80) K/uL Eos # (Auto) 0.01 L (0.04-0.40) K/uL Baso # (Auto) 0.01 L (0.02-0.10) K/uL Sodium 130 L (136-145) mmol/L Potassium 6.1 H* D (3.5-5.1) mmol/L Chloride 96 L (98-107) mmol/L Carbon Dioxide 15.6 L D (21.0-32.0) mmol/L Anion Gap 24.5 H (5.0-15.0) mmol/L BUN 42 H D (8-26) mg/dL Creatinine 2.50 H D (0.70-1.30) mg/dL Est Cr Clr Drug Dosing TNP Estimated GFR (MDRD) 25 L (>60) MLS/MIN BUN/Creatinine Ratio 16.8 (6-25) Glucose 162 H (74-100) mg/dL Lactic Acid 8.9 H (0.4-2.0) mmol/L Calcium 8.5 (8.5-10.1) mg/dL Total Bilirubin 0.6 D (0.0-1.0) mg/dL AST 116 H (15-37) U/L ALT 33 (12-78) U/L Alkaline Phosphatase 454 H (46-116) U/L Total Protein 5.6 L (6.4-8.2) g/dL Albumin 2.0 L (3.4-5.0) g/dL Globulin 3.6 (2.2-4.2) g/dL Albumin/Globulin Ratio 0.6 L (0.8-2.0) Urine Color Urine Appearance (CLEAR) Urine pH (5.0-8.0) Ur Specific [place] (1.003-1.030) Urine Protein (NEGATIVE) mg/dL Urine Glucose (UA) (NEGATIVE) mg/dL Urine Ketones (NEGATIVE) mg/dL Urine Occult Blood (NEGATIVE) Urine Nitrite (NEGATIVE) Urine Bilirubin (NEGATIVE) Urine Urobilinogen (0.2-1.0) E.U./dL Ur Leukocyte Esterase (NEGATIVE) Urine RBC /HPF Urine WBC /HPF Urine Bacteria /HPF 01/19/20 Range/Units 17:20 WBC (4.0-11.0) K/uL RBC (4.50-6.50) M/uL Hgb (13.0-18.0) g/dL Hct (40.0-54.0) % MCV (76-96) fL MCH (27.0-32.0) pg MCHC (31.0-35.0) g/dL RDW (11.0-16.0) % Plt Count (150-400) K/uL MPV (6.0-10.0) fL Neut % (Auto) (45.0-70.0) % Lymph % (Auto) (20.0-40.0) % [place] % (Auto) (3.0-10.0) % Eos % (Auto) (1.0-5.0) % Baso % (Auto) (0.0-0.5) % Neut # (Auto) (2.00-7.50) K/uL Lymph # (Auto) (1.50-4.00) K/uL [place] # (Auto) (0.20-0.80) K/uL Eos # (Auto) (0.04-0.40) K/uL Baso # (Auto) (0.02-0.10) K/uL Sodium (136-145) mmol/L Potassium (3.5-5.1) mmol/L Chloride (98-107) mmol/L Carbon Dioxide (21.0-32.0) mmol/L Anion Gap (5.0-15.0) mmol/L BUN (8-26) mg/dL Creatinine (0.70-1.30) mg/dL Est Cr Clr Drug Dosing Estimated GFR (MDRD) (>60) MLS/MIN BUN/Creatinine Ratio (6-25) Glucose (74-100) mg/dL Lactic Acid (0.4-2.0) mmol/L Calcium (8.5-10.1) mg/dL Total Bilirubin (0.0-1.0) mg/dL AST (15-37) U/L ALT (12-78) U/L Alkaline Phosphatase (46-116) U/L Total Protein (6.4-8.2) g/dL Albumin (3.4-5.0) g/dL Globulin (2.2-4.2) g/dL Albumin/Globulin Ratio (0.8-2.0) Urine Color Other Urine Appearance Cloudy (CLEAR) Urine pH 7.5 (5.0-8.0) Ur Specific [place] 1.025 (1.003-1.030) Urine Protein >=300 H (NEGATIVE) mg/dL Urine Glucose (UA) Negative (NEGATIVE) mg/dL Urine Ketones Negative (NEGATIVE) mg/dL Urine Occult Blood Large H (NEGATIVE) Urine Nitrite Negative (NEGATIVE) Urine Bilirubin Small H (NEGATIVE) Urine Urobilinogen 0.2 (0.2-1.0) E.U./dL Ur Leukocyte Esterase Small H (NEGATIVE) Urine RBC 30-40 H /HPF Urine WBC 10-20 H /HPF Urine Bacteria Few /HPF Meds: Medications Discontinued Medications Generic Name Dose Route Start Last Admin Trade Name Freq PRN Reason Stop Dose Admin Hydromorphone HCl Confirm 01/19/20 16:51 Dilaudid Administered 01/19/20 16:52 Dose 2 mg .ROUTE .STK-MED ONE Hydromorphone HCl Confirm 01/19/20 19:01 Dilaudid Administered 01/19/20 19:02 Dose 2 mg .ROUTE .STK-MED ONE Hydromorphone HCl Confirm 01/19/20 19:02 Dilaudid Administered 01/19/20 19:03 Dose 6 mg .ROUTE .STK-MED ONE Ondansetron HCl Confirm 01/19/20 16:51 Zofran Administered 01/19/20 16:52 Dose 4 mg .ROUTE .STK-MED ONE Ondansetron HCl Confirm 01/19/20 18:59 Zofran Odt Administered 01/19/20 19:00 Dose 24 mg .ROUTE .STK-MED ONE Departure - Departure Time of Disposition: 19:30 Disposition: DC/Tfer to Hospice - Home 50 Condition: Critical Clinical Impression: Hyperkalemia, Lactic acidosis Renal failure Qualifiers: Renal failure chronicity: acute Acute renal failure type: unspecified Qualified Code(s): N17.9 - Acute kidney failure, unspecified - Discharge Information *PRESCRIPTION DRUG MONITORING PROGRAM REVIEWED*: No *COPY OF PRESCRIPTION DRUG MONITORING REPORT IN PATIENT RANDOLPH: No Instructions: Ondansetron tablets, Oxycodone extended-release tablets Referrals: PCP,None [Primary Care Provider] - Forms: ED Department Discharge Care Plan Goals: Take oxycontin two times a day as instructed by health care provider, zofran every 4 hours as needed. take oxycodone as directed. Call Dr. Gloria tomorrow morning for any changes in pain medication. - My Orders Last 24 Hours: My Active Orders 01/19/20 16:42 Chest 1V Frontal [CR] Stat 01/19/20 16:45 CULTURE BLOOD [BC] Stat CULTURE BLOOD [BC] Stat 01/19/20 17:20 CULTURE URINE [RM] Stat - Assessment/Plan Last 24 Hours: My Active Orders 01/19/20 16:42 Chest 1V Frontal [CR] Stat 01/19/20 16:45 CULTURE BLOOD [BC] Stat CULTURE BLOOD [BC] Stat 01/19/20 17:20 CULTURE URINE [RM] Stat
[2020-01-19] MEDS: HYDROmorphone 2 MG/ML SDV ONE (21:10)
[2020-01-19] MEDS: HYDROmorphone 2 MG Tab ONE ×2 (21:11→21:14)
[2020-01-19] MEDS: Ondansetron 4 MG/2 ML SDV ONE (21:11)
[2020-01-19] MEDS: Ondansetron 4 MG Tab.DIS ONE (21:15)
--- NOTE | 2020-01-20 09:47 | CR ---
Date of Service: 01/19/20 Clinical Data: fever; SOB; pain AP CHEST: Comparison is made to a prior exam dated 08/11/19. The right-sided Port-A-Cath remains unchanged in position. The heart size is normal. The lungs are clear. No pneumothorax. No pleural effusions. No evidence of acute intrathoracic disease. [id number] [facility]
== END 2020-01-19 19:05 | disposition hospice, home (50) ==
LOC: LB.ED 14:53
DX: E87.5 Hyperkalemia (principal); E87.2 Acidosis; N17.9 Acute kidney failure, unspecified; D72.819 Decreased white blood cell count, unspecified; I10 Essential (primary) hypertension; I25.2 Old myocardial infarction; E11.9 Type 2 diabetes mellitus without complications; E78.00 Pure hypercholesterolemia, unspecified; Z88.5 Allergy status to narcotic agent; Z95.5 Presence of coronary angioplasty implant and graft; Z79.4 Long term (current) use of insulin; Z79.899 Other long term (current) drug therapy
CPT/HCPCS: 36415; 71045; 80053; 81001; 83605; 85025; 87040; 87077; 87086; 87088; 87186; 96374; 96375; 96376; 99285-25; A9270-GY; J1170; J2405; J7030